=== PATIENT | male | born 1955 | race Caucasian/White ===

== ENCOUNTER → 2016-12-18 | Outpatient (CLI) | payer BC ==
[~2016-12-18] MED LIST: AMLO-110 PO; ASPI81TA28 PO; ATOR-24 PO; COEN150C PO; COLE625T PO; FENT75DI2 TD; GABA600T PO; MULT-506 PO; OMEG120013 PO; OMEP40CA PO; SYN100 PO; TEMA15CA4 PO; TRAZ100T29 PO; VITBC PO
--- NOTE | 2016-12-18 12:13 | DIAGNOSTIC IMAGING REPORT ---
CERVICAL SPINE MRI HISTORY: CERVICAL PAIN TECHNIQUE: Multiplanar multisequence MRI of the cervical spine was performed without the use of contrast. COMPARISON STUDY: None. FINDINGS: There is straightening of the cervical spine. Alignment is intact. Mild disc space narrowing at C4-C5, C5-C6, and C6-C7. There are small endplate osteophytes seen at C5-C7. No fractures within the cervical spine. Prevertebral soft tissues and the C1-C2 interval are intact. The visualized posterior fossa is unremarkable. The cervical spinal cord demonstrates a normal signal intensity. Mild bilateral facet arthrosis. This is most pronounced at the right C3-C4 facet. C2-C3: No significant central canal or neural foraminal narrowing. Mild left uncovertebral hypertrophy. C3-C4: There is an 8 x 6 mm right paracentral disc extrusion which abuts and slightly deforms the right anterior cord. Bilateral uncovertebral and facet hypertrophy results in severe right and mild to moderate left neural foraminal narrowing. C4-C5: Small broad-based posterior disc osteophyte complex resulting in partial effacement of the anterior thecal sac without cord deformity. There is moderate right and mild left neural foraminal narrowing. C5-C6: Small broad-based posterior disc osteophyte complex resulting in partial effacement of the anterior thecal sac without cord deformity. There is severe right and mild left neural foraminal narrowing. C6-C7: Small broad-based posterior disc osteophyte complex without significant central canal narrowing. There is moderate right and mild left neural foraminal narrowing. C7-T1: No significant central canal or neural foraminal narrowing. IMPRESSION: 1. An 8 x 6 mm right paracentral disc extrusion at C3-C4 which abuts and slightly deforms the right anterior cord. 2. Multilevel bilateral neural foraminal narrowing as described above. 3. Small broad-based posterior disc osteophyte complexes at C4-C5 and C5-C6 which result in partial effacement of the anterior thecal sac without cord deformity Electronically signed by: Dixon Dangelo M.D. 12/18/2016 12:11 PM Dictated Date/Time: 12/18/2016 11:46 AM
== END | disposition home or self-care (01) ==
LOC: C.OPENMRI 10:28
PROVIDERS: ATTEND Orthopaedic Surgery Orthopaedic Surgery of the Spine
DX: M50.21 Other cervical disc displacement, high cervical region (principal)

== ENCOUNTER → 2017-06-18 | Outpatient (CLI) | payer BC ==
--- NOTE | 2017-06-19 07:46 | PAP/PSG TECHNICIAN REPORT ---
[facility] Mechanical Maintenance Polysomnogram Report Study name: None Report date: 06/19/2017 Study date: 06/18/2017 Referring Physician: Dave Martino M.D. Name: JAMEY BERMUDEZ Interpreting Physician: Meenakshi Martino M.D. Date of : 1955 Mechanical Maintenance: Trish Kraus, PSGT. Sex: Male Age: 61 StudyType: PSG Weight: 192 lbs Height: 61 years, Height 6' 2.5" Neck Circum:15 inches BMI: 24.32 Medications: LEVOXYL 112 MCG, PROTONIX 40 MG, ZANTAC 150 MG, NORVASAC 2.5 MG, DESYREL 100 MG, FENTANYL 75 MG, PRILESEC 40 MG, LIPITOR 80 MG, RESTERIL 15 MG, ANDRODERM 4 MG, ATIVAN 0.5 MG, NEURONTIN 600 MG, ASPIRIN 81 MG. Patient History 61 YR. OLD MALE IN ROOM 5, PRESENTS TO THE SLEEP LAB FOR A ROUTINE SLEEP STUDY. PT. STATES THAT HE WASNT ABLE TO BE COMPLIANT WITH C-PAP IN THE PAST AND REFUSES TO TRY AGAIN. HE DOES STATE THAT HE HAS INSOMNIA AND WAKES OFTEN WHEN HE CAN SLEEP. HE STATES THAT HE SNORES AND NEEDS HELP WITH THAT ALSO. HE USES A FENTANYL PATCH, RESTORIL, ATIVANALONG WITH TRAZADONE TO HELP WITH PAIN AND SLEEP WELL ANIEXTY.ESSS=6, NECK =15 INCHES. Parameters Monitored NPSG: E1-M2, E2-M1, Fp1-M2, Fp2-M1, F3-M2, F4-M2, F4-M1, C3-M2, C4-M2, C4-M1, O1-M2, O2-M2, O2-M1, T3-M2, T4-M1, P3-M2, P4-M1, CHIN1, CHIN2, HR, EKG, Legs, PFLOW, SNOR, FLOW, CFLOW, Tidal Volume, THOR, ABDO, SpO2, PLTH, CPRESS, ETCO2 Wave, ETCO2, pH Sleep Architecture Sleep Stages Time at Lights Off 10:58:11 PM STAGES Time (min.) TST (%) Time at Lights On 5:15:41 AM Wake 28.5 -- Total Recording Time (TRT) 378.00 min. N1 16.0 5 Total Sleep Period (TSP) 367.5 min. N2 274.0 79 Total Sleep Time (TST) 349.0min. N3 0.0 0 Awake Time 28.5 min. REM 59.0 17 Wake after Sleep Onset 18.5 min. Sleep Efficiency (SE) 92 % Sleep Onset Latency (GERA) 10.0 min. Number of Stage 1 Shifts None Awakenings 9 Stage Changes 42 Number of REM periods 5 REM 59.0 17 REM Latency 57.0 min. NREM 290.0 83 Body Position Analysis Supine Right Left Side Prone Vertical Total Sleep Time (min.) 46.1 163.9 140.1 303.93 0.0 0.2 Total Sleep Time (%) 13% 47% 40% 87 0% N/A% Total Sleep Time REM (min.) 17.0 21.0 21.0 None 0.0 0.0 Total Sleep Time NREM (min.) 28.1 142.9 119.1 None 0.0 0.0 Intermittent Wake (min.) 1.0 14.8 12.5 None 0.0 0.2 Total Sleep Period (%) 13% None None None None None Arousals Myoclonus (PLM) * Events Count Index Events Count Index Spontaneous 34 6 Events Awake (PLMW) 2 4.2 Respiratory 2 0.3 Events Asleep w/ Arousal (PLMA) 0 0.0 PLM 0 0 Events Asleep w/o Arousal (PLMS) 55 9.5 Snoring 4 1 Total Asleep 55 9.5 Total 40 7 Total 57 9 Respiratory Analysis * CA OA MA CH H RERA Total Count 1 1 1 0 14 5 17 Index 0.2 0.2 0.2 0 2.4 1 3.8 Mean Duration 14.4 23.6 17.7 0.00 24.0 13.3 20.8 Longest Duration 14.4 23.6 17.7 0.00 17.7 22.5 52.9 Respiratory Event Summary Total Supine ~Supine Right Left Prone REM NREM Apneas Count 3 0 3 3 0 N/A 0 3 Index 0.5 0 1 1.1 0.0 N/A 0 1 Hypopneas (4% Desat) Count 14 2 12 5 7 N/A 0 14 Index 2.4 2.7 2 1.8 3.0 N/A 0.0 2.9 Apneas & All Hypopneas Count 17 2 15 8 7 N/A 0 17 Index 2.9 3 3 3 3 N/A 0.0 3.5 Respiratory Events ([place] Man+All Hyp+RERA) Count 17 3 19 10 9 N/A 0 17 Index 3.8 4 4 3.7 3.9 N/A 0.0 4.6 Respiratory Related Arousal Count 2 3 2 1 1 N/A 0 2 Index 0.3 0 0 0 0 N/A 0 0 Snoring Analysis Supine Right Left Prone REM NREM Total Snore duration 17.4 min Snores count 21 29 506 N/A 23 533 556 Snore mean duration 1.9 Sec Snores index 28 11 217 N/A 23.4 110.3 95.6 TST with snoring (%) 5.0% Desaturation Event Summary: Minimum %SpO2 Event Count Mean/Min/Max Duration(sec.) Desaturation Index % Time In Bed > 90 19 18.0 / 11.0 / 29.5 3.3 90.8 86 - 90 0 N/A 0.0 9.2 81 - 85 0 N/A 0.0 0.0 76 - 80 0 N/A 0.0 0.0 71 - 75 0 N/A 0.0 0.0 66 - 70 0 N/A 0.0 0.0 61 - 65 0 N/A 0.0 0.0 56 - 60 0 N/A 0.0 0.0 51 - 55 0 N/A 0.0 0.0 < 50 0 N/A 0.0 0.0 Total REM NREM Awake <50% 0.0 min. 0.0 min. 0.0 min. 0.0 min. 51 - 60% 0.0 min. 0.0 min. 0.0 min. 0.0 min. 61 - 70% 0.0 min. 0.0 min. 0.0 min. 0.0 min. 71 - 80% 0.0 min. 0.0 min. 0.0 min. 0.0 min. 81 - 90% 34.5 min. 0.7 min. 33.7 min. 0.0 min. 91 - 100% 341.9 min. 58.3 min. 256.1 min. 27.5 min. Average 92 93 92 94 Minimum SpO2 76 90 88 76 Desaturation Event Index 3.0 0.0 3.9 2.1 # Desat. Events below 89% 1 N/A 1 N/A Time(%) with Saturation below 89% 0.0 0.0 0.0 0.0 Time(min.) with Saturation below 89% 0.1 0.0 0.1 0.0 Time (mins) REM (mins) NREM (mins) % of TST SpO2 Below 90% 8 N/A N8 0.9 SpO2 Below 88% 0 0 0 0 Heart Rate Analysis Min (bpm) Max (bpm) Average (bpm) Awake 38 127 59 NREM 39 73 55 REM 41 71 53 Overall 39 73 54 Supplemental O2 Values Minimum O2 level: None Value Start Time End Time Mechanical Maintenance Comments PSG Study Mr. Bermudez slept in the right, left, and supine positions. Cardiac arrhythmia or PLM's noted. No bruxism noted. Snoring was noted and scored as a 4 on a scale of 1 through 5. (0=no snoring, 5=snoring loud enough to be heard through a closed door or down the herrera way) Mr. Bermudez awoke to use the restroom zero times during the night. Mr. Bermudez stated, I did not sleep as well as I do when I am in my own bed. The final report will be interpreted and signed by a sleep physician. The completed physician report will then be placed in the patient medical record. Therapy (cm H2O) 0 TIB (min.) 377.5 TST (min.) 349.0 Sleep Onset (min.) 10.0 REM Onset From Sleep (min.) 57.0 Sleep Efficiency % 92 Wakefulness (%) 8 Wakefulness (min.) 28.5 NREM 1 (%) 5 NREM 1 (min.) 16.0 NREM 2 (%) 79 NREM 2 (min.) 274.0 NREM 3 (%) 0 NREM 3 (min.) 0.0 REM (%) 17 REM (min.) 59.0 # Arousals 40 Arousal Index 7 # Snore 556 Snore Index 95.6 AHI 2.9 AHI Supine 3 AHI Non-Supine 3 NREM AHI 3.5 REM AHI 0.0 RDI 3.8 # Obstructive Apnea 1 # Central Apnea 1 # Mixed Apnea 1 # Hypopneas 14 RERAs 5 Total Respiratory Events 22 Time Below SpO2 89% (min.) 0.1 Mean NREM SpO2 (%) 92 Mean REM SpO2 (%) 93 Mean Sleep SpO2 (%) 92 Min NREM SpO2 (%) 88 Min REM SpO2 (%) 90 Position Supine (min.) 46.1 Position Non-supine (min.) 303.9 LM Index Sleep 9.5 LM Index NREM 9.1 LM Index REM 11.2 Mean Heart Rate (bpm) 54 Min Heart Rate (bpm) 39
--- NOTE | 2017-07-07 16:34 | POLYSOMNOGRAPH REPORT ---
REFERRING PERSON: Dr. Shabnam Martino. CORRECTIONAL SECURITY OFFICER: Rowan Kraus. Mr. Bermudez is a 61-year-old male who presents for a baseline sleep study. He has a history of obstructive sleep apnea but was unable to be compliant in the past. He has a history of insomnia and wakes often during sleep. He does snore. He uses fentanyl patch for chronic pain. He also uses restoril, Ativan and trazodone for pain and sleep. His [place] sleepiness scale score on the evening of this study is 6. BMI is 24.32. Following the technical and digital specifications of the [place] [employer] (AASM) a standard diagnostic polysomnogram was performed monitoring EEG, EOG, EMG (chin and leg deviations), oxygen saturation, body position, digital video, respiratory effort and airflow. The sleep Stage and event scoring was based on the AASM Manual for the Scoring of Sleep and Associated Events 2007 edition. Apneas are defined as a drop in the peak thermal sensor excursion by >90% of baseline for at least 10 seconds. Hypopneas were scored using the 4% oxygen desaturation rule (4A-[employer]) and a decrease in the nasal pressure excursions by >30% of baseline for at least 10 seconds. Respiratory effort-related arousal (RERA's) is defined as a sequence of breaths lasting at least 10 seconds characterized by increasing respiratory effort or flattening of the nasal pressure waveform leading to an arousal from sleep when the sequence of breaths does not meet criteria for an apnea or hypopnea. Apnea Hypopnea index (AHI) is defined as the number of apneas and hypopneas occurring in an hour of sleep. Respiratory disturbance index (RDI) is defined as the number of apneas, hypopneas, and RERA's occurring in an hour of sleep. Mr. Jackson total sleep period time was 367.5 minutes. Total sleep time was 349 minutes. Sleep efficiency was 92%. Latency to sleep onset was 10 minutes with wake after sleep onset of 18.5 minutes. Total non-REM sleep time was 290 minutes. He spent 5% of that time in N1 sleep, 79% in N2 sleep and no time in N3 sleep. REM latency was 57 minutes. Total REM sleep time was 59 minutes or 17% of total sleep time. There were 40 cortical arousals from sleep. Thirty-four of these arousals were spontaneous, 2 were due to respiratory events, and 4 were due to snoring. There were 55 periodic limb movements. Limb movement index was 9.5. Limb movement with arousal index was 0. On this baseline study, there was 1 central, 1 obstructive and 1 mixed apnea. There were 14 hypopneas. Apnea-hypopnea index was normal at 2.9. There were 556 snoring events recorded. Total sleep time with snoring was 5%. Mean saturation was 92% with desaturations to 76%. Saturations were less than 89% for 0.1 minutes of recorded time. There was no cardiac ectopy during sleep, this patient's heart rates ranged from a low of 39 beats per minute to a high of 73 beats per minute. Loud snoring was heard throughout the night. IMPRESSION AND PLAN: A 61-year-old male without evidence of sleep-disordered breathing, nocturnal hypoxemia, bruxism, parasomnia or clinically significant periodic limb movements of sleep on this test.
== END | disposition home or self-care (01) ==
LOC: C.NEUR 20:00
PROVIDERS: ATTEND Family Medicine
DX: Z86.69 Personal history of other diseases of the nervous system and sense organs (principal); F51.04 Psychophysiologic insomnia; F40.240 Claustrophobia; R06.83 Snoring; R06.81 Apnea, not elsewhere classified; D58.2 Other hemoglobinopathies; F41.9 Anxiety disorder, unspecified

== ENCOUNTER 2022-02-06 06:31 | Inpatient (IN) ==
[2022-02-06] MEDS ORDERED: WATER, STERILE FOR INJ 10 ML VIAL ONE (06:56)
[2022-02-06] MEDS ORDERED: BUPIVACAINE 0.25% 30 ML VIAL ONE (06:56)
[2022-02-06] MEDS ORDERED: LIDOCAINE 1% LOCAL 20 ML VIAL ONE ×2 (06:56→16:06)
[2022-02-06] MEDS ORDERED: VANCOMYCIN HCL 1000MG/20ML VIAL ONE (06:56)
--- NOTE | 2022-02-06 07:49 | History & Physical Bridge Note ---
Date of Service February 06, 2022 History & Physical Bridge Note I have examined the patient, reviewed the History & Physical and in the interval since the performance of the History & Physical I have noted the following changes of clinical significance: no changes noted
--- NOTE | 2022-02-06 07:50 | Pre Anesthesia Assessment ---
Date of Service February 06, 2022 Pre Sedation Assessment Vital Signs Resp 02/06/22 07:04 18 Cardiovascular + bradycardic Respiratory normal respiratory effort, lungs clear to auscultation Pre-Sedation Airway Assessment Smoking Status: Never smoker Hx Sleep Apnea: Yes Short, Thick Neck: No Thyromental Distance: > or= 3.5 Finger Breadths Oral Cavity: + WNL Mallampati Class: II ASA: ASA2 NPO Status Date of Last Intake of Fluids: 02/05/22 Time of Last Intake of Fluids: 23:00 Last Oral Intake of Fluids Comment: sips this am with meds Date of Last Intake of Solid Food: 02/05/22 Time of Last Intake of Solid Foods: 21:00 Procedure Planning Contraindications for Sedation: none Current Medications Reviewed: Yes Notes The planned sedation has been discussed with the patient. Informed Consent was obtained. I have identified the patient, determined the appropriateness of sedation and have assessed the patient immediately prior to the procedure. All medicine(s) and interventions are by my order.
[2022-02-06] MEDS ORDERED: CLINDAMYCIN PHOS 300 MG/2 ML VIAL ONE (07:51)
[2022-02-06] MEDS ORDERED: fentaNYL citrate 100 MCG/2 ML VIAL ONE ×2 (08:03→08:36)
[2022-02-06] MEDS ORDERED: MIDAZOLAM HCL 5 MG/ML 1 ML VIAL ONE ×2 (08:03→08:42)
--- NOTE | 2022-02-06 09:43 | Post Anesthesia Assessment ---
Date of Service February 06, 2022 Post Sedation Assessment Vital Signs Resp 02/06/22 07:04 18 Recovery Score Activity: Moves 4 extremities Respiration: Deep Breath/Cough Circulation: +/-20% PreAnes Value Consciousness: Fully Awake Oxygen Saturation: > 92% On Room Air Discharge Sedation Level of Care: Fast Track Phase II Post Sedation Plan On clinical assessment, the patient appears to have tolerated the sedation witho ut complications. Patient is recovering as anticipated. Patient will continue to be monitored by nursing and may be discharged when sedation discharge criteria are met per below protocol. Upon Completions of procedure up to 15 minutes continue every 5 minute vital signs and the P.A.R. score; then discharge to a Phase I or Fast Track to Phase II per the following guidelines: * Discharge Patient to appropriate Phase II area if PAR is 8 or greater or return to pre- procedure baseline. The post - procedure orders will be as directed. * If PAR score is less than 8 or not return to pre-procedure baseline then patient will follow Phase I monitoring till PAR is reached for Phase II. The Phase I may be done in procedure room or may call to secure a Phase I area. * If naloxone or flumazenil are used for reversal, hold in Phase I for continued monitoring from when last reversal dose was given for a minimum of 60 minutes or longer pending the nurse and/or physician discretion of patient condition before discharge to Phase II. Please call the Sedation Physician to re-evaluate and complete post-note for discharge to Phase II area. Do NOT discharge from procedure sedation or Phase 1 until post- sedation evaluation note is complete by procedure /sedation MD Sedation Discharge Instructions to be given to the patient at discharge to home.
--- NOTE | 2022-02-06 09:44 | Operative Report ---
Post Operative Report Pre & Post Diagnosis tbs Operation Date: 02/06/22 08:00 <No data on this case meets the specified criteria> I identified the patient and participated in the time-out.: Yes Procedure Operation Date: 02/06/22 08:00 Actual Procedures p Cineradiography w/Routine Exam - Mayte De La Rosa DO p Pacer with A/V Leads (Dual) - Mayte De La Rosa, s Bundle of his Recording - Mayte De La Rosa DO s Venogram, Unilateral - Mayte De La Rosa, Surgeon Mayte De La Rosa, DO Product Architect none Estimated Blood Loss 40 Findings Consistent with Post-Op Diagnosis t Specimens none Description of Procedure see official report I attest to the content of the Intraoperative Record and any orders documented therein. Any exceptions are noted below.
--- NOTE | 2022-02-06 11:33 | XRay Report ---
XR chest 1V portable CLINICAL HISTORY: s/p ppm TECHNIQUE: Single frontal radiograph of the chest was obtained. Comparison: None available at the time of this dictation. FINDINGS: Dual lead pacemaker is seen. The cardiac mediastinal silhouette is mildly prominent. The lungs are cl ear. There is a moderate thorax. IMPRESSION: Moderate left pneumothorax status post pacemaker placement. ACT 112: Negative or not required by law. Electronically signed by: Victor M Duarte M.D. 02/06/2022 11:30 AM
[2022-02-06] MEDS ORDERED: MELATONIN 3 MG TAB PO PRN (13:26)
[2022-02-06] MEDS ORDERED: oxyCODONE HCL IR 5 MG TAB (IMMEDIATE RELEASE) PO PRN (13:29)
--- NOTE | 2022-02-06 15:19 | XRay Report ---
XR chest 1V portable CLINICAL HISTORY: Left PNX TECHNIQUE: Single frontal radiograph of the chest was obtained. Comparison: Comparison is made to chest one view 02/06/2022 FINDINGS: Dual lead pacemaker is again seen. The cardiomediastinal silhouette is stable. The lungs are clear. I nterval enlargement of left pneumothorax, now measures approximately 6 cm in thickness. IMPRESSION: Interval enlargement of left pneumothorax which is now large in size. ACT 112: Negative or not required by law. Electronically signed by: Victor M Duarte M.D. 02/06/2022 3:17 PM
[2022-02-06 15:49] LABS: INR 1.9 (0.9-1.1); Prothrombin Time 19.7 Seconds (9.0-12.0)
[2022-02-06 16:05] LABS: Basophils # (auto) 0.03 K/uL (0-0.2); Basophils % (auto) 0.3 %; Eosinophils # (auto) 0.19 K/uL (0-0.5); Eosinophils % (auto) 1.9 %; Hematocrit (blood only) 41.2 % (42-52); Immature Granulocytes # (auto) 0.01 K/uL (0.00-0.02); Immature Granulocytes % (auto) 0.1 %; Lymphocytes # (auto) 2.71 K/uL (1.2-3.4); Lymphocytes % (auto) 27.7 %; Mean Corpuscular Hemoglobin 30.1 pg (25-34); Mean Corpuscular Volume 88.6 fL (80-100); Mean Platelet Volume 10.5 fL (7.4-10.4); Monocytes # (auto) 0.69 K/uL (0.11-0.59); Monocytes % (auto) 7.1 %; Neutrophils # (auto) 6.14 K/uL (1.4-6.5); Neutrophils % (auto) 62.9 %; Platelet Count 171 K/uL (130-400); RDW Coefficient of Variation 13.5 % (11.5-14.5); RDW Standard Deviation 43.9 fL (36.4-46.3); Red Blood Count 4.65 M/uL (4.7-6.1); White Blood Count 9.77 K/uL (4.8-10.8)
[2022-02-06 16:14] LABS: INR 1.9 (0.9-1.1); Prothrombin Time 19.4 Seconds (9.0-12.0)
--- NOTE | 2022-02-06 16:41 | XRay Report ---
XR chest 1V portable CLINICAL HISTORY: pneumothorax s/p chest tube placement TECHNIQUE: Single frontal radiograph of the chest was obtained. Comparison: Comparison is made to chest one view 02/06/2022 at 1428 hours FINDINGS: Interval placement of a left chest tube. The cardiomediastinal silhouette is stable. Atelectasis is s een in the bilateral dependent lungs. The left pneumothorax is decreased in size, there is a 13 mm le ft apical pneumothorax remaining. IMPRESSION: Interval placement of a left chest tube with reduction in size of the left pneumothorax which is smal l. ACT 112: Negative or not required by law. Electronically signed by: Victor M Duarte M.D. 02/06/2022 4:39 PM
--- NOTE | 2022-02-06 16:52 | Procedure Note ---
Procedure Note Date of Service February 06, 2022 Note Left-sided 8 Afghan chest tube in the mid axillary line Procedure: Pneumothorax catheter placement Indication: Evacuate pneumothorax Anesthesia: 8 ml Lidocaine 1% Written consent was obtained and placed on the chart. Timeout was done prior to the procedure. Prior to procedure, chest x-ray films were reviewed by myself and demonstrated a large left-sided pneumothorax. A time-out was completed verifying correct patient, procedure, site, positioning, and implant(s) or special equipment if applicable. Utilizing bedside ultrasound, chest wall was evaluated for location for optimal chest tube placement. Location between the fifth and sixth ribs were marked on the skin using gentle pressure. The left sided chest wall was prepped with chlorhexidine and draped in the typical sterile fashion. 8 mL of 1% Lidocaine without epinephrine was used to anesthetize the skin down to the dorsal surface of the 6 rib. Air return confirmed entry into the pleural space. Lidocaine was injected into the pleural space for increased anesthetization. Introducer needle on syringe was inserted in perpendicular fashion taking care to ride just above the dorsal surface of the sixth rib. Entry into the pleural space was heralded by air return into the syringe while under gentle aspiration. A small incision was made using an 11 scalpel blade. Pneumothorax catheter was placed using the over the needle technique. This was attached to the [place] drainage kit. Air leak was seen. Pneumothorax catheter was secured using a 2-0 silk suture. Blood Loss: Minimal Complications: None Post procedure Chest X-ray was ordered and reviewed by myself which demonstrated adequate placement. Coding CPT Codes Pulmonary/Thoracic - Pulmonary and Thoracic: 81756 Tube thoracostomy ([id number]) [facility] [place] Codes (Charges) Pulmonary/Thoracic Procedure 1: Pulmonary and Thoracic: 83492 Tube thoracostomy
--- NOTE | 2022-02-06 16:59 | Pulmonary Consultation ---
Date of Consultation February 06, 2022 Assessment & Plan (1) Iatrogenic pneumothorax: 8 Dutch chest tube placed in the mid axillary line with improvement of the pneumothorax. We will leave the chest tube to -20 cm suction overnight and obtain a chest x-ray tomorrow morning. We will continue to follow with you. History of Present Illness Reason for Consultation: Iatrogenic pneumothorax Attending Physician: Mayte De La Rosa DO History of Present Illness 14-year-old male with a past medical history of tachybradycardia syndrome who presented as an outpatient for pacemaker placement. He underwent pacemaker via left subclavian vein approach. He was doing well and was incidentally discovered to have a moderate size left pneumothorax. He was placed on a nonrebreather. Unfortunately, the pneumothorax increased in size and the patient began having some mild chest pressure. Consent was obtained fro m the patient to place a small bore chest tube which was successfully placed and the pneumothorax was decompressed. Patient denies any history of lung disease, tobacco abuse. He notes that his chest pressure is now relieved. He has a small grade 1 leak in the [place] drainage system. Allergies Allergy/AdvReac Type Severity Reaction Status Date / Time Penicillins Allergy Mild Unknown Verified 03/02/21 08:10 Home Medications Medication Instructions Recorded Confirmed Type aspirin 81 mg tablet,delayed 81 mg PO QAM 09/29/18 02/06/22 History release (Adult Aspirin Regimen) multivitamin 1 tab PO QAM 09/29/18 02/06/22 History omega-3 fatty acids 1,000 mg 1,000 mg PO HS 09/29/18 02/06/22 History capsule (Fish Oil Concentrate) oxycodone 5 mg capsule 5 mg PO BID PRN cap 09/29/18 02/06/22 History temazepam 15 mg capsule (Restoril) 15 mg PO HS cap 09/29/18 02/06/22 History trazodone 100 mg tablet 200 mg PO HS tab 09/29/18 02/06/22 History levothyroxine 112 mcg tablet 112 mcg PO QAM 11/15/19 02/06/22 History (Synthroid) sertraline 100 mg tablet (Zoloft) 100 mg PO QAM 11/15/19 02/06/22 History amlodipine 10 mg tablet 10 mg PO DAILY 05/16/20 02/06/22 History coenzyme Q10 400 mg capsule 400 mg PO DAILY 05/16/20 02/06/22 History morphine 30 mg tablet,extended 30 mg PO Q12H 05/16/20 02/06/22 History release atorvastatin 80 mg tablet (Lipitor) 80 mg PO DAILY 03/02/21 02/06/22 History docusate sodium 100 mg capsule 300 mg PO DAILY cap 03/02/21 02/06/22 History (Colace) ezetimibe 10 mg tablet (Zetia) 10 mg PO DAILY 03/02/21 02/06/22 History fluticasone propionate 50 1 spray INTRANASAL DAILY 03/02/21 02/06/22 History mcg/actuation nasal spray,suspension (Flonase Allergy Relief) lactobacillus combination no.9 4 4,000 mmu cells PO DAILY 03/02/21 02/06/22 History billion cell capsule (Adult 50 Plus Probiotic) melatonin 10 mg capsule 10 mg PO HS PRN 03/02/21 02/06/22 History methylcellulose (with sugar) oral 1 tbsp PO DAILY 03/02/21 02/06/22 History powder (Citrucel (sucrose)) potassium chloride 10 mEq 10 meq PO DAILY 03/02/21 02/06/22 History tablet,extended release (Klor-Con) torsemide 20 mg tablet 20 mg PO DAILY 03/02/21 02/06/22 History vitamin B complex (B 1 tab PO DAILY 03/02/21 02/06/22 History Complex-Vitamin B12) famotidine 20 mg tablet 40 mg PO DAILY 02/06/22 02/06/22 History pantoprazole 40 mg tablet,delayed 40 mg PO DAILY 02/06/22 02/06/22 History release warfarin 5 mg tablet 5 mg PO DAILY 02/06/22 02/06/22 History Patient History Medical History (Updated 02/06/22 @ 16:57 by Pritesh Galloway MD) Anxiety Back pain Cancer SCC Cardiac murmur Chronic back pain Chronic narcotic use Degenerative disc disease Depression Family history of colon cancer Hyperlipidemia Hypertension H/O. NO MEDICATIONS NEEDED CURRENTLY Hypogonadism in male Hypothyroidism Iatrogenic pneumothorax Valvular heart disease Aortic Valve Replacement 11/05/21 Surgical History (Updated 12/19/21 @ 08:29 by Ivonne Weems RN) Fusion of spine L3-L4 History of cardiac cath History of colonoscopy History of coronary artery bypass graft CABG x 3 SINGH to LAD SVG to OM PDA 11/05/2021 History of endoscopic sinus surgery History of heart artery stent 1 OR 2 STENTS. 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 Patient is in no apparent distress. Patient is well-developed. Eyes: Pupils are equal round and reactive to light. Conjunctivae are normal. Anicteric sclera. Ears nose, mouth and throat: Nasal cannula in place. Neck: Trachea is midline. Visual inspection is normal. Respiratory: Decreased lung sounds in the left. No tracheal deviation. Cardiovascular: Regular rate and rhythm. No murmurs. No edema. Gastrointestinal: Normal bowel sounds, soft, nontender and nondistended. No hepatosplenomegaly noted. Musculoskeletal: No cyanosis. Patient is able to move all extremities. Skin: No rashes, warm dry and intact. Neurologic: No obvious focal neurological deficits seen. Psychiatric: Alert and oriented x3 with a euthymic affect. Results & Data Results & Data ([facility]) Vital Signs (Past 12 Hours) Vital Signs Temp Pulse Pulse Resp BP Pulse Ox 02/06/22 15:23 71 20 178/103 H 98 02/06/22 14:44 36.4 C L 72 20 154/100 H 98 02/06/22 14:28 36.5 C 71 20 164/103 H 97 02/06/22 14:15 36.4 C L 71 20 158/101 H 97 02/06/22 13:30 66 162/104 H 100 02/06/22 13:15 65 153/100 H 100 02/06/22 12:55 70 141/107 H 100 02/06/22 12:40 70 141/107 H 100 02/06/22 12:25 72 157/101 H 100 02/06/22 12:10 72 158/97 H 100 02/06/22 11:55 74 20 149/85 H 98 02/06/22 11:40 77 20 144/89 H 99 02/06/22 11:27 76 17 153/89 H 92 02/06/22 10:59 65 17 148/100 H 92 02/06/22 10:30 65 17 172/111 H 92 02/06/22 10:15 65 17 160/100 H 92 02/06/22 10:00 66 17 146/96 H 92 02/06/22 09:45 68 17 163/105 H 92 02/06/22 07:04 18 PG Care Time/CCT Total # of Minutes Spent Total Time Spent with Patient: Total time spent is greater than 50% in coordination of care (as documented) at patient's floor/unit and/or counseling patient: Coding Level of Care Code 37805 Initial Inpt Care Lvl 2 Diagnoses Iatrogenic pneumothorax J95.811
[2022-02-06] MEDS ORDERED: OMEGA-3 (PURIFIED FISH OIL) 1 GM CAP PO SCH (21:00)
[2022-02-06] MEDS ORDERED: traZODone HCL 100 MG TAB PO SCH (21:00)
[2022-02-06] MEDS ORDERED: TEMAZEPAM 15 MG CAPSULE PO SCH (21:00)
[2022-02-06] MEDS: OMEGA-3 (PURIFIED FISH OIL) 1 GM CAP PO SCH (23:57)
[2022-02-06] MEDS: traZODone HCL 100 MG TAB PO SCH (23:57)
[2022-02-07] MEDS: LEVOTHYROXINE SODIUM 112 MCG TABLET PO SCH (06:02)
[2022-02-07] MEDS: ACETAMINOPHEN 325 MG TAB PO PRN ×2 (06:04→10:09)
[2022-02-07 06:34] LABS: INR 1.8 (0.9-1.1); Prothrombin Time 18.4 Seconds (9.0-12.0)
--- NOTE | 2022-02-07 08:35 | Pulmonology Progress Note ---
Date of Service February 07, 2022 Assessment & Plan (1) Iatrogenic pneumothorax: Plan: Attending: Dr. Galloway Impression: 66-year-old male with iatrogenic pneumothorax status post pacemaker placement. Repeat chest x-ray performed several hours after procedure showed persistent pneumothorax. An 8 [place] pneumothorax catheter was placed in the midaxillary line without difficulty or bleeding. Patient was placed to suction overnight. Chest x-ray this morning shows resolution of the pneumothorax. Patient was placed to waterseal at 0800 this morning. Patient has no fever, chills, sweats, rigors. No hypoxia. No respiratory distress. No other acute complaints. Recommendations: 1. Iatrogenic pneumothorax * Patient with reexpansion of lung status post placement of 8 [place] pneumothorax catheter in the left midaxillary line * Oxygenating well on room air * Will place patient to waterseal this morning and get repeat chest x-ray at 11 AM * Based on review of chest x-ray, possible removal of catheter. Possible discharge home later today Thank you for including us in the care of this patient. We will continue to follow the patient. Admission and Anticipated Discharge Date Admission Date: February 06, 2022 Supervising Physician Co-Signing Physician Notes Patient seen and examined. Patient evaluated this afternoon post chest x-ray. Chest x-ray reviewed with increasing apical pneumothorax. Patient placed back on suction with a low-grade airleak noted. We will continue with suction at thi s time and reevaluate chest x-ray tomorrow. Patient denies any significant chest pain. No shortness of breath. Subjective Attending: Dr. Galloway Patient seen and examined in room 230 bed 2. Chest tube continues to remain secured. Chest x-ray reviewed and there appears to be reexpansion of the left lung. Patient placed to waterseal at 0800 this morning. Repeat two-view chest x-ray ordered for 11 AM this morning. Patient has no significant discomfort at the chest tube insertion site. He has no shortness of breath. He is oxygenating well on room air. He has no chest pain or tightness. No specific pain at the cardiac pacer placement site. He denies fever, chills, sweats, rigors. No other acute complaints today. Review of Systems Review of Systems: All systems reviewed & are unremarkable except as noted in Subjective Physical Exam Physical Exam: GENERAL : No acute distress EYES: No icterus, gaze conjugate NOSE: No evidence of epistaxis MOUTH: No lesions or candidiasis NECK: Supple LUNGS: CTA B/L, no wheezes, rales or rhonchi. Lung sounds in all posterior lung hennessy. HEART: Regular, rate controlled ABDOMEN: Soft, NT, ND, BS Present EXTREMITIES: No LE edema, pedal pulses intact NEURO: A&OX3 Results & Data [facility] Vital Signs (Past 12 Hours) Vital Signs Temp Pulse Pulse Pulse Resp BP Pulse Ox 02/07/22 07:49 37.0 C 74 19 139/91 97 02/07/22 03:49 36.9 C 74 20 169/82 H 93 02/06/22 23:03 36.8 C 72 20 180/98 H 97 02/06/22 22:20 75 Diagnostic Findings Chest x-ray completed this morning. There appears to be no pneumothorax. Chest tube is in good position. Official report from radiology is pending. Critical Care Results & Data Vital Signs (Past 12 Hours) Vital Signs Temp Pulse Pulse Pulse Resp BP Pulse Ox 02/07/22 07:49 37.0 C 74 19 139/91 97 02/07/22 03:49 36.9 C 74 20 169/82 H 93 02/06/22 23:03 36.8 C 72 20 180/98 H 97 02/06/22 22:20 75 Lab & Micro Results (Past 24 Hours) RBC 4.65 M/uL (4.7-6.1) L 02/06/22 WBC 9.77 K/uL (4.8-10.8) 02/06/22 Hgb 14.0 g/dL (14.0-18.0) 02/06/22 Hct 41.2 % (42-52) L 02/06/22 MCV 88.6 fL (80-100) 02/06/22 MCH 30.1 pg (25-34) 02/06/22 MCHC 34.0 g/dL (32-36) 02/06/22 RDW Standard Deviation 43.9 fL (36.4-46.3) 02/06/22 RDW Coefficient of Variation 13.5 % (11.5-14.5) 02/06/22 Plt Count 171 K/uL (130-400) 02/06/22 MPV 10.5 fL (7.4-10.4) H 02/06/22 Neutrophils (%) (Auto) 62.9 % 02/06/22 Lymphocytes (%) (Auto) 27.7 % 02/06/22 Monocytes # (Auto) 0.69 K/uL (0.11-0.59) H 02/06/22 Eosinophils # (Auto) 0.19 K/uL (0-0.5) 02/06/22 Immature Granulocyte % (Auto) 0.1 % 02/06/22 Neutrophils # (Auto) 6.14 K/uL (1.4-6.5) 02/06/22 Lymphocytes # (Auto) 2.71 K/uL (1.2-3.4) 02/06/22 Monocytes # (Auto) 0.69 K/uL (0.11-0.59) H 02/06/22 Eosinophils # (Auto) 0.19 K/uL (0-0.5) 02/06/22 Basophils # (Auto) 0.03 K/uL (0-0.2) 02/06/22 Immature Granulocyte # (Auto) 0.01 K/uL (0.00-0.02) 02/06/22 No Data to Display Prothromb Time International Ratio 1.8 (0.9-1.1) H 02/07/22 05:43 02/07/22 Diagnostic Findings (Past 24 Hours) Chest X-Ray 02/06/22 11:30 XR chest 1V portable CLINICAL HISTORY: s/p ppm TECHNIQUE: Single frontal radiograph of the chest was obtained. Comparison: None available at the time of this dictation. FINDINGS: Dual lead pacemaker is seen. The cardiac mediastinal silhouette is mildly prominent. The lungs are clear. There is a moderate thorax. IMPRESSION: Moderate left pneumothorax status post pacemaker placement. ACT 112: Negative or not required by law. Electronically signed by: Victor M Duarte M.D. 02/06/2022 11:30 AM Chest X-Ray 02/06/22 15:05 XR chest 1V portable CLINICAL HISTORY: Left PNX TECHNIQUE: Single frontal radiograph of the chest was obtained. Comparison: Comparison is made to chest one view 02/06/2022 FINDINGS: Dual lead pacemaker is again seen. The cardiomediastinal silhouette is stable. The lungs are clear. Interval enlargement of left pneumothorax, now measures approximately 6 cm in thickness. IMPRESSION: Interval enlargement of left pneumothorax which is now large in size. ACT 112: Negative or not required by law. Electronically signed by: Victor M Duarte M.D. 02/06/2022 3:17 PM Chest X-Ray 02/06/22 16:24 XR chest 1V portable CLINICAL HISTORY: pneumothorax s/p chest tube placement TECHNIQUE: Single frontal radiograph of the chest was obtained. Comparison: Comparison is made to chest one view 02/06/2022 at 1428 hours FINDINGS: Interval placement of a left chest tube. The cardiomediastinal silhouette is stable. Atelectasis is seen in the bilateral dependent lungs. The left pneumothorax is decreased in size, there is a 13 mm left apical pneumothorax remaining. IMPRESSION: Interval placement of a left chest tube with reduction in size of the left pneu mothorax which is small. ACT 112: Negative or not required by law. Electronically signed by: Victor M Duarte M.D. 02/06/2022 4:39 PM I & O Totals 24 Hours 02/06/22 02/07/22 02/08/22 06:59 06:59 06:59 Output Total 800 / 800 Balance -800 / -800 Cumulative 01/28/22 10:39 thru 02/07/22 04:20 Output Total 800 Balance -800 RT Ventilator Mngmt (Last Documented) Ventilator Ordered Settings Respiratory Rate 19 02/07/22 07:49 Ventilator - PT Measurements Respiratory Rate 19 PG Care Time/CCT Total # of Minutes Spent Total Time Spent with Patient: Total time spent is greater than 50% in coordination of care (as documented) at patient's floor/unit and/or counseling patient:20 minutes Coding Level of Care Code 70243 Subseq Hosp Care Lvl 2 Diagnoses Iatrogenic pneumothorax J95.811 Time Spent (min) 20
[2022-02-07] MEDS ORDERED: WARFARIN SOD 5 MG TAB PO SCH (09:00)
[2022-02-07] MEDS: VITAMIN B COMPLEX TAB PO SCH (09:56)
[2022-02-07] MEDS: dilTIAZem ER 120 MG CAPCR PO SCH (09:56)
[2022-02-07] MEDS: TORSEMIDE 20 MG TAB PO SCH (09:56)
[2022-02-07] MEDS: ATORVASTATIN 40 MG TAB PO SCH (09:57)
[2022-02-07] MEDS: amLODIPine BESYLATE 5 MG TAB PO SCH (09:57)
[2022-02-07] MEDS: MULTIVITAMIN TAB PO SCH (09:57)
[2022-02-07] MEDS: ASPIRIN 81 MG ECTAB PO SCH (09:57)
[2022-02-07] MEDS: SERTRALINE HCL 100 MG TABLET PO SCH (09:58)
[2022-02-07] MEDS: EZETIMIBE 10 MG TABLET PO SCH (09:58)
[2022-02-07] MEDS: ADVANCED PROBIOTIC 1250 MG CAPSULE PO SCH (09:58)
[2022-02-07] MEDS: FAMOTIDINE 40 MG TABLET PO SCH (09:58)
[2022-02-07] MEDS: PANTOprazole 40 MG TAB PO SCH (09:58)
[2022-02-07] MEDS: POTASSIUM CHLORIDE 10 MEQ TABCR PO SCH (09:58)
[2022-02-07] MEDS: DOCUSATE SODIUM 100 MG CAP PO SCH (09:58)
[2022-02-07] MEDS: FLUTICASONE PROPIONATE NA SPR 16 GM BTL SCH (09:59)
[2022-02-07] MEDS: METHYLCELLULOSE POWDER 454 GM JAR PO SCH (10:00)
--- NOTE | 2022-02-07 10:01 | XRay Report ---
XR chest 1V portable HISTORY: 66 years-old Male follow up ptx follow-up study in a patient with left-sided pneumothorax COMPARISON: Chest radiograph 02/06/2022 TECHNIQUE: Portable AP view of the chest FINDINGS: Cardiomediastinal and hilar silhouettes are within normal limits. Prior median sternotomy with left a trial exclusion device. Left subclavian pacer. Mild linear scarring/atelectasis of the left lung base redemonstrated. Left apical pneumothorax redemonstrated with pleural separation of 1.9 cm, previousl y 1.3 cm. Pleural separation laterally measures 1.6 cm. Chest tube projects over the lateral left tera g base. Degenerative changes of the shoulders and spine. IMPRESSION: Left-sided chest tube in place. Mildly increased size of the left-sided pneumothorax. ACT 112: Negative or not required by law. The above report was generated using voice recognition software. It may contain grammatical, syntax o r spelling errors. Electronically signed by: Julian Page M.D. 02/07/2022 9:59 AM
--- NOTE | 2022-02-07 11:26 | XRay Report ---
XR chest 2V PA/lateral HISTORY: 66 years-old Male Left-sided pneumothorax follow study in a patient with left-sided pneumot horax COMPARISON: Chest radiograph of same day at 6:43 AM TECHNIQUE: PA and lateral views of the chest FINDINGS: Cardiomediastinal and hilar silhouettes are within normal limits. Prior median sternotomy with left a trial exclusion device and cardiac valvular prosthesis. Left subclavian pacer. Mild linear scarring/a telectasis of the left lung base redemonstrated. Left apical pneumothorax redemonstrated with pleural separation of 2.9 cm, previously 1.9 cm. The chest projects over the lateral left lung base. Trace s ubcutaneous emphysema of the lateral left chest wall. Degenerative changes of the shoulders and spine . Limited lateral view secondary to upper extremity positioning. IMPRESSION: Left-sided chest tube in place with persistent left-sided pneumothorax which appears stab le to slightly increased in size. ACT 112: Negative or not required by law. The above report was generated using voice recognition software. It may contain grammatical, syntax o r spelling errors. Electronically signed by: Julian Page M.D. 02/07/2022 11:24 AM
--- NOTE | 2022-02-07 12:05 | Cardiology Progress Note ---
Date of Service February 07, 2022 Assessment & Plan (1) Iatrogenic pneumothorax: (2) Pacemaker: Plan: The patient is in good spirits. Pulmonary note appreciated and he is currently to [facility] so hopefully the chest tube can come out later today. Otherwise the patient is stable. Admission and Anticipated Discharge Date Admission Date: February 06, 2022 Subjective The patient has no ongoing complaints. Review of Systems Review of Systems: Review of Systems: See HPI for pertinent positives. All other 10 point review of systems are negative. Physical Exam Physical Exam: General: no acute distress and stated age Head: normocephalic, no masses, lesions, tenderness or abnormalities Eyes: conjunctiva are pink and non-injected, sclera clear Neck: supple, no adenopathy, no bruits, normal jugular venous pulse, no hepatojugular reflux Chest: normal shape and normal respiratory effort Lungs: Chest tube on the left. Breath sounds sound equal Cardiac Exam: - regular rate & rhythm, no murmurs gallops or rubs - normal S1, normal S2 Pulses: 2(+) throughout Abdomen: abdomen soft, non-tender, no abnormal masses and no hepatosplenomegaly Musculoskeletal: no gait disturbance, no joint inflammation, no deforming arthritis Extremities: Left arm in a sling. Pacemaker site clean and dry Neuro: grossly normal exam Results & Data ([facility]) Vital Signs (Past 12 Hours) Vital Signs Temp Pulse Pulse Resp BP Pulse Ox 02/07/22 11:28 36.8 C 79 18 163/96 H 92 02/07/22 07:49 37.0 C 74 19 139/91 97 02/07/22 03:49 36.9 C 74 20 169/82 H 93 Laboratory Results Laboratory Results - last 24 hr 02/06/22 02/06/22 02/06/22 14:51 15:53 15:53 WBC 9.77 RBC 4.65 L Hgb 14.0 Hct 41.2 L MCV 88.6 MCH 30.1 MCHC 34.0 RDW Std Deviation 43.9 RDW Coeff of Jasmina 13.5 Plt Count 171 MPV 10.5 H Immature Gran % (Auto) 0.1 Neut % (Auto) 62.9 Lymph % (Auto) 27.7 [place] % (Auto) 7.1 Eos % (Auto) 1.9 Baso % (Auto) 0.3 Neut # (Auto) 6.14 Lymph # (Auto) 2.71 [place] # (Auto) 0.69 H Eos # (Auto) 0.19 Baso # (Auto) 0.03 Immature Gran # (Auto) 0.01 PT 19.7 H 19.4 H INR 1.9 H 1.9 H 02/07/22 05:43 WBC RBC Hgb Hct MCV MCH MCHC RDW Std Deviation RDW Coeff of Jasmina Plt Count MPV Immature Gran % (Auto) Neut % (Auto) Lymph % (Auto) [place] % (Auto) Eos % (Auto) Baso % (Auto) Neut # (Auto) Lymph # (Auto) [place] # (Auto) Eos # (Auto) Baso # (Auto) Immature Gran # (Auto) PT 18.4 H INR 1.8 H Medications Administered Current Inpatient Medications Acetaminophen (Acetaminophen 325 Mg Tab) 650 mg PO Q4H PRN PRN Reason: Pain or Fever Stop: 03/08/22 12:43 Last Admin: 02/07/22 10:09 Dose: 650 mg Documented by: Amlodipine Besylate (Amlodipine Besylate 5 Mg Tab) 10 mg PO DAILY [facility] Stop: 03/09/22 08:59 Last Admin: 02/07/22 09:57 Dose: 10 mg Documented by: Aspirin (Aspirin 81 Mg Ectab) [facility] [place]: 03/09/22 08:59 Last Admin: 02/07/22 09:57 Dose: 81 mg Documented by: Atorvastatin Calcium (Atorvastatin 40 Mg Tab) 80 mg PO DAILY [facility] Stop: 03/09/22 08:59 Last Admin: 02/07/22 09:57 Dose: 80 mg Documented by: Diltiazem HCl (Diltiazem Er 120 Mg Capcr) 120 mg PO QAM [facility] Stop: 03/09/22 08:59 Last Admin: 02/07/22 09:56 Dose: 120 mg Documented by: Docusate Sodium (Docusate Sodium 100 Mg Cap) 300 mg PO DAILY [facility] Stop: 03/09/22 08:59 Last Admin: 02/07/22 09:58 Dose: Not Given Documented by: Ezetimibe (Ezetimibe 10 Mg Tablet) 10 mg PO DAILY [facility] Stop: 03/09/22 08:59 Last Admin: 02/07/22 09:58 Dose: 10 mg Documented by: Famotidine (Famotidine 40 Mg Tablet) 40 mg PO DAILY [facility] Stop: 03/09/22 08:59 Last Admin: 02/07/22 09:58 Dose: 40 mg Documented by: Fish Oil (Cantil-3 (Purified Fish Oil) 1 Gm Cap) 1 gm PO 0000 [facility] Stop: 03/08/22 20:59 Last Admin: 02/06/22 23:57 Dose: 1 gm Documented by: Fluticasone Propionate (Fluticasone Propionate Na Spr 16 Gm Btl) 1 sprays NA DAILY [facility] Stop: 03/09/22 08:59 Last Admin: 02/07/22 09:59 Dose: 1 sprays Documented by: Lactobacillus Acidophilus (Advanced Probiotic 1250 Mg Capsule) 2 cap PO DAILY [facility] Stop: 03/09/22 08:59 Last Admin: 02/07/22 09:58 Dose: 2 cap Documented by: Levothyroxine Sodium (Levothyroxine Sodium 112 Mcg Tablet) 112 mcg PO DAILYBB [facility] Stop: 03/09/22 06:29 Last Admin: 02/07/22 06:02 Dose: 112 mcg Documented by: Melatonin (Melatonin 3 Mg Tab) 9 mg PO HS PRN PRN Reason: Sleep Stop: 03/08/22 13:25 Methylcellulose (Methylcellulose Powder 454 Gm Jar) 1 gm PO DAILY [facility] Stop: 03/09/22 08:59 Last Admin: 02/07/22 10:00 Dose: 1 gm Documented by: Morphine Sulfate (Morphine Sulfate Cr 15 Mg Tabcr) 30 mg PO Q12H [facility] Stop: 02/20/22 20:59 Last Admin: 02/07/22 00:00 Dose: 30 mg Documented by: Multivitamins (Multivitamin Tab) 1 tab PO QAM [facility] Stop: 03/09/22 08:59 Last Admin: 02/07/22 09:57 Dose: 1 tab Documented by: Oxycodone HCl (Oxycodone Hcl Ir 5 Mg Tab (Immediate Release)) 5 mg PO BID PRN PRN Reason: Pain Stop: 02/20/22 13:28 Pantoprazole Sodium (Pantoprazole 40 Mg Tab) 40 mg PO DAILY [facility] Stop: 03/09/22 08:59 Last Admin: 02/07/22 09:58 Dose: 40 mg Documented by: Potassium Chloride (Potassium Chloride 10 Meq Tabcr) 10 meq PO DAILY [facility] Stop: 03/09/22 08:59 Last Admin: 02/07/22 09:58 Dose: 10 meq Documented by: Sertraline HCl (Sertraline Hcl 100 Mg Tablet) 100 mg PO QAM [facility] Stop: 03/09/22 08:59 Last Admin: 02/07/22 09:58 Dose: 100 mg Documented by: Temazepam (Temazepam 15 Mg Capsule) 15 mg PO 0000 [facility] Stop: 03/08/22 20:59 Last Admin: 02/07/22 00:00 Dose: 15 mg Documented by: Torsemide (Torsemide 20 Mg Tab) 20 mg PO [id number]@0900 [facility] Stop: 03/09/22 08:59 Last Admin: 02/07/22 09:56 Dose: 20 mg Documented by: Torsemide (Torsemide 20 Mg Tab) 40 mg PO MoWeFr@0900 [facility] Stop: 03/10/22 08:59 Trazodone HCl (Trazodone Hcl 100 Mg Tab) 200 mg PO 0000 [facility] Stop: 03/08/22 20:59 Last Admin: 02/06/22 23:57 Dose: 200 mg Documented by: Vitamin B Complex (Vitamin B Complex Tab) 1 tab PO DAILY [facility] Stop: 03/09/22 08:59 Last Admin: 02/07/22 09:56 Dose: 1 tab Documented by:
[2022-02-07] MEDS: MoRPHine SULFATE CR 15 MG TABCR PO SCH ×3 (12:10→23:58)
[2022-02-07] MEDS: TEMAZEPAM 15 MG CAPSULE PO SCH ×2 (23:58)
[2022-02-07] MEDS: traZODone HCL 100 MG TAB PO SCH (23:58)
[2022-02-07] MEDS: OMEGA-3 (PURIFIED FISH OIL) 1 GM CAP PO SCH (23:59)
[2022-02-08] MEDS: LEVOTHYROXINE SODIUM 112 MCG TABLET PO SCH (05:46)
--- NOTE | 2022-02-08 07:25 | XRay Report ---
XR chest 1V portable HISTORY: 66 years-old Male follow up ptx follow-up study in a patient with left-sided pneumothorax COMPARISON: Chest radiograph 02/07/2022 TECHNIQUE: Portable AP view of the chest FINDINGS: Cardiac mediastinal and hilar silhouettes are within normal limits. Prior median sternotomy with left atrial exclusion device and cardiac valvular prosthesis. Left subclavian pacer. Mild linear subsegme ntal bibasilar atelectasis/scarring. Left-sided chest tube appears unchanged. Left-sided pneumothorax is unchanged with pleural separation at the apex measuring 2.8 cm and 1.6 cm laterally. Bones appear grossly intact. Decreased subcutaneous emphysema of the chest wall. IMPRESSION: Stable positioning of the left-sided chest tube with unchanged left-sided pneumothorax. ACT 112: Negative or not required by law. The above report was generated using voice recognition software. It may contain grammatical, syntax o r spelling errors. Electronically signed by: Julian Page M.D. 02/08/2022 7:23 AM
[2022-02-08 07:30] LABS: INR 1.4 (0.9-1.1); Prothrombin Time 14.7 Seconds (9.0-12.0)
[2022-02-08] MEDS: amLODIPine BESYLATE 5 MG TAB PO SCH (08:11)
[2022-02-08] MEDS: ASPIRIN 81 MG ECTAB PO SCH (08:12)
[2022-02-08] MEDS: ATORVASTATIN 40 MG TAB PO SCH (08:12)
[2022-02-08] MEDS: dilTIAZem ER 120 MG CAPCR PO SCH (08:13)
[2022-02-08] MEDS: DOCUSATE SODIUM 100 MG CAP PO SCH (08:14)
[2022-02-08] MEDS: EZETIMIBE 10 MG TABLET PO SCH (08:15)
[2022-02-08] MEDS: FAMOTIDINE 40 MG TABLET PO SCH (08:15)
[2022-02-08] MEDS: FLUTICASONE PROPIONATE NA SPR 16 GM BTL SCH (08:16)
[2022-02-08] MEDS: ADVANCED PROBIOTIC 1250 MG CAPSULE PO SCH (08:16)
[2022-02-08] MEDS: METHYLCELLULOSE POWDER 454 GM JAR PO SCH (08:17)
[2022-02-08] MEDS: MULTIVITAMIN TAB PO SCH (08:17)
[2022-02-08] MEDS: POTASSIUM CHLORIDE 10 MEQ TABCR PO SCH (08:19)
[2022-02-08] MEDS: SERTRALINE HCL 100 MG TABLET PO SCH (08:20)
[2022-02-08] MEDS: VITAMIN B COMPLEX TAB PO SCH (08:20)
[2022-02-08] MEDS: TORSEMIDE 20 MG TAB PO SCH (08:21)
--- NOTE | 2022-02-08 08:24 | Pulmonology Progress Note ---
Date of Service February 08, 2022 Assessment & Plan (1) Iatrogenic pneumothorax: Plan: Attending: Dr. Galloway Impression: 66-year-old male with iatrogenic pneumothorax status post pacemaker placement. Repeat chest x-ray performed several hours after procedure showed persistent pneumothorax. An 8 Albanian pneumothorax catheter was placed in the midaxillary line without difficulty or bleeding. Recommendations: 1. Iatrogenic pneumothorax - Residual ptx seen on cxr this AM. No air leak seen, but after I flushed the tube with 20 ml of saline, brief air leak seen. After about 5 min the air leak went away. Will ask the nurse to place the tube to waterseal in 30 min or so if no air leak is seen. Likely repeat cxr around 11 am and if stable, will clamp tube and consider removal. Thank you for including us in the care of this patient. We will continue to follow the patient. Admission and Anticipated Discharge Date Admission Date: February 06, 2022 Subjective Patient seen and examined. Tolerating diet. No chest pain. Chest tube to suction overnight. Using non-rebreather, but off to eat breakfast. Review of Systems Review of Systems: All systems reviewed & are unremarkable except as noted in HPI & below Physical Exam Physical Exam: GENERAL : No acute distress EYES: No icterus, gaze conjugate NOSE: No evidence of epistaxis MOUTH: No lesions or candidiasis NECK: Supple LUNGS: CTA B/L, no wheezes, rales or rhonchi. Lung sounds in all posterior lung hennessy. HEART: Regular, rate controlled ABDOMEN: Soft, NT, ND, BS Present EXTREMITIES: No LE edema, pedal pulses intact NEURO: A&OX3 Results & Data Results & Data ([facility]) Vital Signs (Past 12 Hours) Vital Signs Temp Pulse Pulse Resp BP Pulse Ox 02/08/22 07:43 36.4 C L 61 15 117/82 96 02/08/22 07:31 72 02/08/22 04:21 36.9 C 70 16 142/85 H 99 02/08/22 01:03 67 02/07/22 23:14 36.8 C 64 18 145/86 H 96 PG Care Time/CCT Total # of Minutes Spent Total Time Spent with Patient: Total time spent is greater than 50% in coordination of care (as documented) at patient's floor/unit and/or counseling patient: Coding Level of Care Code 97879 Subseq Hosp Care Lvl 3 Diagnoses Iatrogenic pneumothorax J95.819
[2022-02-08] MEDS: ACETAMINOPHEN 325 MG TAB PO PRN (08:34)
[2022-02-08] MEDS ORDERED: TORSEMIDE 20 MG TAB PO SCH (09:00)
[2022-02-08] MEDS: PANTOprazole 40 MG TAB PO SCH (09:45)
[2022-02-08] MEDS: MoRPHine SULFATE CR 15 MG TABCR PO SCH ×2 (11:44→23:33)
--- NOTE | 2022-02-08 11:53 | XRay Report ---
XR chest 1V portable HISTORY: 66 years-old Male chest tube to waterseal status post placement of a left-sided chest tube. COMPARISON: Chest radiograph of same day at 6:42 AM TECHNIQUE: AP view of the chest FINDINGS: Cardiac mediastinal and hilar silhouettes are within normal limits. Prior median sternotomy with left atrial exclusion device and cardiac valvular prosthesis. Left subclavian pacer. Mild linear subsegme ntal bibasilar atelectasis/scarring. Left-sided chest tube appears unchanged. Left-sided pneumothorax is unchanged with pleural separation at the apex measuring 3.2 cm, previously 2.8 cm and measures 1. 8 cm at the lateral left lung base, previously 1.6 cm. Bones appear grossly intact. Decreased subcuta neous emphysema of the chest wall. IMPRESSION: Stable positioning of the left-sided chest tube with stable to slightly increased size of the left pneumothorax. ACT 112: Negative or not required by law. The above report was generated using voice recognition software. It may contain grammatical, syntax o r spelling errors. Electronically signed by: Julian Page M.D. 02/08/2022 11:51 AM
--- NOTE | 2022-02-08 12:57 | Cardiology Progress Note ---
Date of Service February 08, 2022 Assessment & Plan (1) Iatrogenic pneumothorax: (2) Pacemaker: Plan: Pulmonary's help appreciated. Patient is stable from a cardiac standpoint. Admission and Anticipated Discharge Date Admission Date: February 06, 2022 Subjective The patient appears to be comfortable. Review of Systems Review of Systems: Review of Systems: See HPI for pertinent positives. All other 10 point review of systems are negative. Physical Exam Physical Exam: General: no acute distress and stated age Head: normocephalic, no masses, lesions, tenderness or abnormalities Eyes: conjunctiva are pink and non-injected, sclera clear Neck: supple, no adenopathy, no bruits, normal jugular venous pulse, no hepatojugular reflux Chest: normal shape and normal respiratory effort Lungs: Chest tube on the left. Breath sounds sound equal Cardiac Exam: - regular rate & rhythm, no murmurs gallops or rubs - normal S1, normal S2 Pulses: 2(+) throughout Abdomen: abdomen soft, non-tender, no abnormal masses and no hepatosplenomegaly Musculoskeletal: no gait disturbance, no joint inflammation, no deforming arthritis Extremities: Left arm in a sling. Pacemaker site clean and dry Neuro: grossly normal exam Results & Data ([facility]) Vital Signs (Past 12 Hours) Vital Signs Temp Pulse Pulse Resp BP Pulse Ox 02/08/22 11:01 36.6 C 68 17 101/68 98 02/08/22 07:43 36.4 C L 61 15 117/82 96 02/08/22 07:31 72 02/08/22 04:21 36.9 C 70 16 142/85 H 99 02/08/22 01:03 67 Laboratory Results Laboratory Results - last 24 hr 02/08/22 06:51 PT 14.7 H INR 1.4 H Medications Administered Current Inpatient Medications Acetaminophen (Acetaminophen 325 Mg Tab) 650 mg PO Q4H PRN PRN Reason: Pain or Fever Stop: 03/08/22 12:43 Last Admin: 02/08/22 08:34 Dose: 650 mg Documented by: Amlodipine Besylate (Amlodipine Besylate 5 Mg Tab) 10 mg PO DAILY [facility] Stop: 03/09/22 08:59 Last Admin: 02/08/22 08:11 Dose: 10 mg Documented by: Aspirin (Aspirin 81 Mg Ectab) 81 mg PO QAM [facility] Stop: 03/09/22 08:59 Last Admin: 02/08/22 08:12 Dose: 81 mg Documented by: Atorvastatin Calcium (Atorvastatin 40 Mg Tab) 80 mg PO DAILY [facility] Stop: 03/09/22 08:59 Last Admin: 02/08/22 08:12 Dose: 80 mg Documented by: Diltiazem HCl (Diltiazem Er 120 Mg Capcr) 120 mg PO QAM [facility] Stop: 03/09/22 08:59 Last Admin: 02/08/22 08:13 Dose: 120 mg Documented by: Docusate Sodium (Docusate Sodium 100 Mg Cap) 300 mg PO DAILY [facility] Stop: 03/09/22 08:59 Last Admin: 02/08/22 08:14 Dose: 300 mg Documented by: Ezetimibe (Ezetimibe 10 Mg Tablet) 10 mg PO DAILY [facility] Stop: 03/09/22 08:59 Last Admin: 02/08/22 08:15 Dose: 10 mg Documented by: Famotidine (Famotidine 40 Mg Tablet) 40 mg PO DAILY [facility] Stop: 03/09/22 08:59 Last Admin: 02/08/22 08:15 Dose: 40 mg Documented by: Fish Oil ([place]-3 (Purified Fish Oil) 1 Gm Cap) 1 gm PO 0000 [facility] Stop: 03/08/22 20:59 Last Admin: 02/07/22 23:59 Dose: 1 gm Documented by: Fluticasone Propionate (Fluticasone Propionate Na Spr 16 Gm Btl) 1 sprays NA DAILY [facility] Stop: 03/09/22 08:59 Last Admin: 02/08/22 08:16 Dose: Not Given Documented by: Lactobacillus Acidophilus (Advanced Probiotic 1250 Mg Capsule) 2 cap PO DAILY [facility] Stop: 03/09/22 08:59 Last Admin: 02/08/22 08:16 Dose: 2 cap Documented by: Levothyroxine Sodium (Levothyroxine Sodium 112 Mcg Tablet) 112 mcg PO DAILYBB [facility] Stop: 03/09/22 06:29 Last Admin: 02/08/22 05:46 Dose: 112 mcg Documented by: Melatonin (Melatonin 3 Mg Tab) 9 mg PO HS PRN PRN Reason: Sleep Stop: 03/08/22 13:25 Methylcellulose (Methylcellulose Powder 454 Gm Jar) 1 gm PO DAILY [facility] Stop: 03/09/22 08:59 Last Admin: 02/08/22 08:17 Dose: Not Given Documented by: Morphine Sulfate (Morphine Sulfate Cr 15 Mg Tabcr) 30 mg PO Q12H [facility] Stop: 02/20/22 20:59 Last Admin: 02/08/22 11:44 Dose: 30 mg Documented by: Multivitamins (Multivitamin Tab) 1 tab PO QAM [facility] Stop: 03/09/22 08:59 Last Admin: 02/08/22 08:17 Dose: 1 tab Documented by: Oxycodone HCl (Oxycodone Hcl Ir 5 Mg Tab (Immediate Release)) 5 mg PO BID PRN PRN Reason: Pain Stop: 02/20/22 13:28 Last Admin: 02/07/22 20:10 Dose: 5 mg Documented by: Pantoprazole Sodium (Pantoprazole 40 Mg Tab) 40 mg PO DAILY [facility] Stop: 03/09/22 08:59 Last Admin: 02/08/22 09:45 Dose: 40 mg Documented by: Potassium Chloride (Potassium Chloride 10 Meq Tabcr) 10 meq PO DAILY [facility] Stop: 03/09/22 08:59 Last Admin: 02/08/22 08:19 Dose: Not Given Documented by: Sertraline HCl (Sertraline Hcl 100 Mg Tablet) 100 mg PO QAM [facility] Stop: 03/09/22 08:59 Last Admin: 02/08/22 08:20 Dose: 100 mg Documented by: Temazepam (Temazepam 15 Mg Capsule) 15 mg PO 0000 [facility] Stop: 03/08/22 20:59 Last Admin: 02/07/22 23:58 Dose: 15 mg Documented by: Torsemide (Torsemide 20 Mg Tab) 20 mg PO SuTuThSa@0900 [facility] Stop: 03/09/22 08:59 Last Admin: 02/08/22 08:21 Dose: 20 mg Documented by: Torsemide (Torsemide 20 Mg Tab) 40 mg PO MoWeFr@0900 [facility] Stop: 03/10/22 08:59 Last Admin: 02/08/22 08:22 Dose: 40 mg Documented by: Trazodone HCl (Trazodone Hcl 100 Mg Tab) 200 mg PO 0000 [facility] Stop: 03/08/22 20:59 Last Admin: 02/07/22 23:58 Dose: 200 mg Documented by: Vitamin B Complex (Vitamin B Complex Tab) 1 tab PO DAILY [facility] Stop: 03/09/22 08:59 Last Admin: 02/08/22 08:20 Dose: 1 tab Documented by:
[2022-02-08] MEDS: OMEGA-3 (PURIFIED FISH OIL) 1 GM CAP PO SCH (23:33)
[2022-02-08] MEDS: TEMAZEPAM 15 MG CAPSULE PO SCH (23:33)
[2022-02-08] MEDS: traZODone HCL 100 MG TAB PO SCH (23:33)
[2022-02-09] MEDS: LEVOTHYROXINE SODIUM 112 MCG TABLET PO SCH (06:18)
[2022-02-09 07:34] LABS: INR 1.3 (0.9-1.1); Prothrombin Time 13.3 Seconds (9.0-12.0)
--- NOTE | 2022-02-09 08:17 | XRay Report ---
XR chest 1V portable CLINICAL HISTORY: follow up ptx COMPARISON STUDY: Chest radiograph February 08, 2022 at 10:33 AM. FINDINGS: Left pleural catheter remains in place. The left pneumothorax is difficult to visualize on this exam due to motion artifact. However, the moderate pneumothorax is either unchanged or slightly decreased in size since prior exam. Left subclavian pacer is in place. There are median sternotomy wi res. Cardiomediastinal silhouette is stable. There is no evidence for pulmonary edema. Left basilar o pacity persists. IMPRESSION: Left pleural catheter in place. Left pneumothorax difficult to visualize on this exam but likely either unchanged or slightly decreased in size since prior exam. ACT 112: Negative or not required by law. Electronically signed by: Brennan Wills M.D. 02/09/2022 8:15 AM
[2022-02-09] MEDS: FLUTICASONE PROPIONATE NA SPR 16 GM BTL SCH (08:57)
[2022-02-09] MEDS: dilTIAZem ER 120 MG CAPCR PO SCH (09:01)
[2022-02-09] MEDS: EZETIMIBE 10 MG TABLET PO SCH (09:01)
[2022-02-09] MEDS: ATORVASTATIN 40 MG TAB PO SCH (09:01)
[2022-02-09] MEDS: DOCUSATE SODIUM 100 MG CAP PO SCH (09:02)
[2022-02-09] MEDS: amLODIPine BESYLATE 5 MG TAB PO SCH (09:02)
[2022-02-09] MEDS: ASPIRIN 81 MG ECTAB PO SCH (09:02)
[2022-02-09] MEDS: FAMOTIDINE 40 MG TABLET PO SCH (09:03)
[2022-02-09] MEDS: VITAMIN B COMPLEX TAB PO SCH (09:03)
[2022-02-09] MEDS: SERTRALINE HCL 100 MG TABLET PO SCH (09:03)
[2022-02-09] MEDS: PANTOprazole 40 MG TAB PO SCH (09:03)
[2022-02-09] MEDS: ADVANCED PROBIOTIC 1250 MG CAPSULE PO SCH (09:03)
[2022-02-09] MEDS: POTASSIUM CHLORIDE 10 MEQ TABCR PO SCH (09:03)
[2022-02-09] MEDS: METHYLCELLULOSE POWDER 454 GM JAR PO SCH (09:05)
--- NOTE | 2022-02-09 11:44 | XRay Report ---
XR chest 1V portable CLINICAL HISTORY: chest tube clamped COMPARISON STUDY: Chest radiograph performed earlier today. FINDINGS: Left pleural catheter remains in place. A small to moderate left pneumothorax is similar to prior exam with superior pleural separation of approximately 2.6 cm. The pneumothorax is difficult t o visualize on this exam. Left subclavian pacer is in place. Left basilar opacity is unchanged. No ri ght pneumothorax. IMPRESSION: No significant change in a small to moderate left pneumothorax with left pleural cathete r in place. ACT 112: Negative or not required by law. Electronically signed by: Brennan Wills M.D. 02/09/2022 11:43 AM
--- NOTE | 2022-02-09 12:04 | Pulmonology Progress Note ---
Date of Service February 09, 2022 Assessment & Plan (1) Iatrogenic pneumothorax: Plan: Attending: Dr. Galloway Impression: 66-year-old male with iatrogenic pneumothorax status post pacemaker placement. Repeat chest x-ray performed several hours after procedure showed persistent pneumothorax. An 8 Omani pneumothorax catheter was placed in the midaxillary line without difficulty or bleeding. Recommendations: 1. Iatrogenic pneumothorax -given the residual pneumothorax seen on imaging, will place the patient on a Heimlich valve as noted per HPI and discharge from home. He is instructed to avoid any significant strenuous activity or lifting anything over 5 pounds. We will repeat a chest x-ray tomorrow and potentially remove the pneumothorax catheter tomorrow in the office or soon after. Thank you for including us in the care of this patient. Admission and Anticipated Discharge Date Admission Date: February 08, 2022 Subjective Patient did very well with chest tube on waterseal overnight. I did clamp the chest tube for approximately 2 hours to repeat a chest x-ray. The pneumothorax appears stable. He did not have any worsening symptoms. He is saturating well on room air. I had numerous discussions with the patient several times during the day and with the nurse. We ultimately placed the patient on a Heimlich valve via the pneumothorax catheter. He ambulated around the hallways on several occasions and had lunch. He did very well. He is agreeable to discharge home with a Heimlich valve and repeating a chest x-ray on Friday. Review of Systems Review of Systems: All systems reviewed & are unremarkable except as noted in HPI & below Physical Exam Physical Exam: GENERAL : No acute distress EYES: No icterus, gaze conjugate NOSE: No evidence of epistaxis MOUTH: No lesions or candidiasis NECK: Supple LUNGS: CTA B/L, no wheezes, rales or rhonchi. Lung sounds in all posterior lung hennessy. HEART: Regular, rate controlled ABDOMEN: Soft, NT, ND, BS Present EXTREMITIES: No LE edema, pedal pulses intact NEURO: A&OX3 Results & Data Results & Data ([facility]) Vital Signs (Past 12 Hours) Vital Signs Temp Pulse Pulse Resp BP Pulse Ox 02/09/22 11:11 36.6 C 64 18 137/84 94 02/09/22 09:00 79 124/74 02/09/22 07:35 36.8 C 65 18 103/69 91 03/19/22 07:30 73 02/09/22 03:11 37 C 60 18 124/78 93 PG Care Time/CCT Total # of Minutes Spent Total Time Spent with Patient: Total time spent is greater than 50% in coordination of care (as documented) at patient's floor/unit and/or counseling patient: Coding Level of Care Code 28667 Subseq Hosp Care Lvl 3 Diagnoses Iatrogenic pneumothorax J95.811
[2022-02-09] MEDS: MULTIVITAMIN TAB PO SCH (12:15)
[2022-02-09] MEDS: MoRPHine SULFATE CR 15 MG TABCR PO SCH (12:38)
--- NOTE | 2022-02-09 12:38 | Cardiology Progress Note ---
Date of Service February 09, 2022 Assessment & Plan (1) Iatrogenic pneumothorax: (2) Pacemaker: Plan: 66-year-old male, primary allopathic doctor Dr. Abbasi of our practice. He has a longstanding history of coronary heart disease with remote PCI to the RCA in 2002. In the fall 2019 he was found to have increased dyspnea on exertion with multivessel stenting at that time, ultimately culminating in need for CABG x3 and surgical bioprosthetic aortic valve replacement, surgical left atrial appendage clip, [facility], 11/05/2021. He has a history of paroxysmal atrial fibrillation and developed tachycardia- bradycardia syndrome, prompting placement of dual-chamber permanent pacemaker 02/06/2022. Postprocedure chest x-ray notable for left-sided pneumothorax, appropriately treated with chest tube. Case reviewed with Dr Galloway of pulmonary medicine. Chest tube in place with a Hemleich valve. Repeat CXR at 11 am , reveals unchanged small to moderate left pneumothorax, presence of pleural catheter noted on radiology report. Given patient's clinical stability (stable pulse oximetry, lack of chest pain, shortness of breath), Plan for discharge with pleural catheter in place, with plans for chest x-ray, pulmonary follow-up in 2 days on 02/11/2022, with plans to likely remove pleural catheter in the office at that time. Pacemaker/wound check already tentatively scheduled at [facility] for 02/14/22. 8:30 am. Admission and Anticipated Discharge Date Admission Date: February 08, 2022 Subjective Patient seen in cardiology follow-up of recent pneumothorax, dual-chamber permanent pacemaker placement. Chest tube clamped at the time of my assessment for seen this morning. Ongoing small to moderate pneumothorax seen on chest x- rays this morning. Patient asymptomatic, with no chest discomfort or subjective shortness of breath. Pulse oximetry stable. Physical Exam Constitutional: WD/WN, vitals as above Respiratory: normal respiratory effort, lungs clear to auscultation Cardiovascular: RRR, no murmur, no edema Chest (Breasts): Additional Comments: Left infraclavicular pacemaker pocket clean dry and intact, incision healing appropriately, mild erythema, usual healing. Neurologic: PERRL, EOMI, accommodation nl, no face palsy, no dysarthria Results & Data ([facility]) Vital Signs (Past 12 Hours) Vital Signs Temp Pulse Pulse Resp BP Pulse Ox 03/19/22 11:11 36.6 C 64 18 137/84 94 02/09/22 09:00 79 124/74 02/09/22 07:35 36.8 C 65 18 103/69 91 02/09/22 07:30 73 02/09/22 03:11 37 C 60 18 124/78 93
--- NOTE | 2022-02-09 12:59 | Discharge Summary ---
Date of Service February 09, 2022 Principal Diagnosis Tachycardia-bradycardia syndrome Permanent pacemaker Postprocedural pneumothorax. Discharge Exam Constitutional WD/WN, vitals as above Respiratory normal respiratory effort, lungs clear to auscultation Cardiovascular RRR, no murmur, no edema Neurologic PERRL, EOMI, accommodation nl, no face palsy, no dysarthria Discharge Data Allergies Allergy/AdvReac Type Severity Reaction Status Date / Time Penicillins Allergy Mild Unknown Verified 03/02/21 08:10 Consultations 02/06/22 12:53 Consult Pulmonology Routine Procedures Performed Operation Date: 02/06/22 08:00 Actual Procedures p Pacer with A/V Leads (Dual) - Mayte De La Rosa DO s Bundle of his Recording - Mayte De La Rosa DO s Venogram, Unilateral - Mayte De La Rosa DO Ordered Studies 01/30/22 07:00 EP Lab Images for PACS ONCE 02/06/22 15:28 US point of care ultrasound Stat Hospital Course (1) Iatrogenic pneumothorax: (2) Pacemaker: 66-year-old male, 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 Abbasi of our practice. He has a longstanding history of coronary heart disease with remote PCI to the RCA in 2002. In the fall 2019 he was found to have increased dyspnea on exertion with multivessel stenting at that time, ultimately culminating in need for CABG x3 and surgical bioprosthetic aortic valve replacement, surgical left atrial appendage clip, [facility], 11/05/2021. He has a history of paroxysmal atrial fibrillation and developed tachycardia- bradycardia syndrome, prompting placement of dual-chamber permanent pacemaker 02/06/2022. Postprocedure chest x-ray notable for left-sided pneumothorax, appropriately treated with chest tube. Case reviewed with Dr Galloway of pulmonary medicine. Chest tube in place with a Hemleich valve. Repeat CXR at 11 am , reveals unchanged small to moderate left pneumothorax, presence of pleural catheter noted on radiology report. Given patient's clinical stability (stable pulse oximetry, lack of chest pain, shortness of breath), Plan for discharge with pleural catheter in place, with plans for chest x-ray, pulmonary follow-up in 2 days on 02/11/2022, with plans to likely remove pleural catheter in the office at that time. Pacemaker/wound check already tentatively scheduled at [facility] for 02/14/22. 8:30 am. Patient is on Coumadin as an outpatient for his history of paroxysmal atrial fibrillation. He remains in sinus rhythm at present, and does have a history of surgical left atrial appendage clip. I believe in the short-term his risk of cardioembolic stroke is low. Given ongoing treatment for pneumothorax with chest tube, he is to be discharged without Coumadin, with plans for reassessment as outpatient next week with regards to the timing of reinitiating Coumadin. Also, electrophysiology plan had been to discontinue patient's metoprolol, in favor of diltiazem CD 120 mg daily. Of note patient also had been on amlodipine 10 mg daily. At this time we will discontinue amlodipine and metoprolol in favor of the previously prescribed diltiazem CD 120 mg daily. Patient already received an outpatient prescription for diltiazem on 01/22/2022 that was routed to the [facility] pharmacy. Total Time Total Time Spent Total Time Spent (In Minutes): 45 Discharge Plan Discharge Items Patient Disposition: Home - Self-Care Reason For Visit: Tachybrady Syndrome Discharge Diagnosis: Tachycardia-bradycardia syndrome, dual-chamber permanent pacemaker, postp rocedural pneumothorax Condition on Discharge: Good Activity: As commented below Activity Comment: do not raise the left elbow over the left shoulder for 1 month Lifting: No more than 10 pounds Lifting Comment: do not lift mroe than 10 pounds with the left arm for 2 weeks Bathing: Keep incision dry Bathing Comment: keep dressing on & dry until wound check; no shower sponge bath only Sexual Activity: After two weeks Non-emergency contact: Equipment Service Technician Call non-emergency contact if: you have any medication questions and your symptoms worsen Follow-up/Referrals: Pritesh Galloway MD [Physician] - 02/11/22 Rolando Valdez MD [Primary Care Provider] - Diet: Heart Healthy Addtl Attending Provider Instructions: Pulmonary follow up with Dr Galloway, 02/11/22, time to be determined. Device and wound check as scheduled next week at [facility], , 8:30 am, 8:15 am arrival. If you have not started the diltiazem 120mg daily start it now. A prescription was sent to the [facility] pharmacy on 01/22/22. Diltiazem replaces amlodipine and metoprolol. Pending Studies at Discharge: No Stand-Alone Forms: Anesthesia/Sedation, Adult, [facility] Medications and DC Order Prescriptions: New diltiazem HCl 120 mg capsule,extended release 24hr 120 mg PO DAILY Qty: 30 RF: 11 Continued atorvastatin [Lipitor] 80 mg tablet 80 mg PO DAILY RF: 0 torsemide 20 mg tablet 20 mg PO DAILY RF: 0 potassium chloride [Klor-Con 10] 10 mEq tablet extended release 10 meq PO DAILY RF: 0 ezetimibe [Zetia] 10 mg tablet 10 mg PO DAILY RF: 0 Citrucel (sucrose) Powder 1 tbsp PO DAILY RF: 0 melatonin 10 mg capsule 10 mg PO HS PRN (Reason: Sleep) RF: 0 vitamin B complex [B Complex-Vitamin B12] Tablet 1 tab PO DAILY RF: 0 Adult 50 Plus Probiotic 4 billion cell capsule 4,000 mmu cells PO DAILY RF: 0 docusate sodium [Colace] 100 mg capsule 300 mg PO DAILY RF: 0 fluticasone propionate [Flonase Allergy Relief] 50 mcg/actuation spray,suspension 1 spray intranasal DAILY RF: 0 aspirin [Adult Aspirin Regimen] 81 mg tablet,delayed release (DR/EC) 81 mg PO QAM RF: 0 oxycodone 5 mg capsule 5 mg PO BID PRN (Reason: Pain) RF: 0 multivitamin tablet 1 tab PO QAM RF: 0 omega-3 fatty acids [Fish Oil Concentrate] 1,000 mg capsule 1,000 mg PO HS RF: 0 temazepam [Restoril] 15 mg capsule 15 mg PO HS RF: 0 trazodone 100 mg tablet 200 mg PO HS RF: 0 morphine 30 mg tablet extended release 30 mg PO Q12H RF: 0 coenzyme Q10 400 mg capsule 400 mg PO DAILY RF: 0 levothyroxine [Synthroid] 112 mcg tablet 112 mcg PO QAM RF: 0 sertraline [Zoloft] 100 mg Tablet 100 mg PO QAM RF: 0 famotidine 20 mg Tablet 40 mg PO DAILY RF: 0 pantoprazole 40 mg Tablet,Delayed Release (Dr/Ec) 40 mg PO DAILY RF: 0 Discontinued amlodipine 10 mg tablet 10 mg PO DAILY RF: 0 warfarin 5 mg Tablet 5 mg PO DAILY RF: 0 metoprolol tartrate 25 mg Tablet 12.5 mg PO BID RF: 0 Discharge Orders: Discharge Order (Routine); Ordered 02/06/22 Ordered By: Mayte De La Rosa Admission Data Admit Date/Time: 02/08/22 13:26 Attending Provider: Mayte De La Rosa Admit Provider: Mayte De La Rosa Primary Care Provider: Rolando Valdez Other Providers: Pritesh Galloway
--- NOTE | 2022-02-18 08:14 | Operative Report (OR) ---
DATE OF PROCEDURE: 02/06/22 PREOPERATIVE DIAGNOSIS: Tachybrady syndrome. POSTOPERATIVE DIAGNOSIS: Tachybrady syndrome. PROCEDURE: Dual-chamber rate responsive permanent pacemaker under fluoroscopic guidance along with peripheral venogram and intracardiac electrogram His bundle recording. SURGEON: Mayte De La Rosa DO. RAYON CONER: None. ANESTHESIA: Monitored conscious sedation administered under my supervision by Rowan Mancuso. Start time 8:17, end time 9:36. A total of 9 mg of Versed and 175 mcg of fentanyl. INTRAVENOUS FLUIDS: 280 mL. ANTIBIOTICS: 600 mg of clindamycin. CONTRAST: 15 mL. BLOOD LOSS: 40 mL. CONDITION: Good. COMPLICATIONS: A 2-hour post chest x-ray revealed pneumothorax, unclear though the cause of this pneumothorax was new or chronic. He ended up getting a pigtail catheter for this eventually, but he was asymptomatic at that time. SPECIMENS: None. URINE OUTPUT: Not applicable. FINDINGS: See below. DRAINS: None. INDICATIONS: This is a 66-year-old gentleman with a past medical history for paroxysmal atrial fibrillation, status post left atrial appendage clip on 11/05/2021, he is on Coumadin and metoprolol after his AVR, but the patient had sleep problems with metoprolol, so he is no longer on it. CHADS2-VASc score of 4, coronary artery disease, history of PCI to the RCA in 06/2003 and then PCI to the proximal LAD and distal RCA in 10/2015. Ultimately had a CABG x3 on 11/05/2021 with SINGH to LAD, SVG to OM and SVG to PDA, aortic stenosis history, status post AVR on 11/05/2021, chronic heart failure with preserved ejection fraction, [place] Heart Association class II, hypertension, hyperlipidemia, hypothyroidism, chronic kidney disease stage III, status post left mastectomy in 10/2017. It was a benign pathology. Obstructive sleep apnea, on CPAP, chronic back problems, sleep problems on beta lionel. He has had evidence of tachybrady syndrome and was recommended a pacemaker. CONSENT: Consent was obtained prior to the patient going into electrophysiology lab. The patient was explained of the risks, benefits, and alternatives to the procedure. Risks include, but not limited to, sudden cardiac , cardiac arrhythmias, cerebrovascular accident, myocardial infarction, injury to the blood vessels, chamber of the heart or lungs, bleeding and infection. The patient understood these risks and agrees to proceed with the procedure as planned. Informed consent was obtained. DESCRIPTION OF PROCEDURE: The patient was brought into electrophysiology lab in a fasting state. He was connected to continuous cardiac monitoring and timeout was performed to ensure the patient's identity and procedure correctly. He was prepped and draped over the left infraclavicular space in normal surgical standard fashion. Monitored conscious sedation was given throughout the procedure for patient's comfort level. Bolton precautions were maintained throughout the procedure. 10 mL of 1% lidocaine-bupivacaine mixture were given in the left deltopectoral groove. Incision was made in the left deltopectoral groove. Blunt dissection was performed down to the pectoralis muscle, then blunt dissection over the pectoralis muscle performed to create a pacemaker pocket. Then, a peripheral venogram was performed to identify the axillary vein. Venous axillary access was obtained on a needlestick; I did not suspect any PTX. A guidewire was inserted without any resistance. A 7-Ethiopian sheath was inserted over the guidewire without any resistance. The dilator was removed and then a second guidewire was inserted through the sheath to allow for retained venous access. Then the sheath was removed, flushed and reinserted over the dilator, and the sheath was reinserted over one of the guidewires, the guidewire and dilator removed. Then, a His C315 sheath was advanced through the sheath into the right ventricle. The guidewire and dilator were removed and the left bundle lead was advanced through the sheath and intracardiac electrogram His bundle recordings were performed, see below for results. Then, I moved the camera into KING 30 and marked where the His was and came down about 2 cm from this in a line that would extend out to the apex to start positioning the left bundle lead. I came on pacing and I saw that I had a nice W form pacing pattern in V1, so I then moved the camera to MOHAWK 30 and gave a series of clockwise turns pausing to see how my pacing complex changed. Ultimately, I had a nice R prime and I gave contrast through the sheath to see how I was well into the septum. I then slit the His C315 sheath under fluoroscopic guidance, leaving the 7-Ethiopian SafeSheath in there while I positioned the right atrial lead. A second 7-Ethiopian sheath was inserted over the retained guidewire, the guidewire and dilator removed. The right atrial lead was then advanced into the right atrium, positioned ultimately in the right atrial appendage. Of note, I did have to reposition it because it was dislodged and I ultimately used a preformed callejas J curve. There was adequate pacing and sensing thresholds and no diaphragmatic stimulation with high output pacing. A pursestring using a 2-[address] needle was placed around the puncture site to prevent any backbleeding. The 7-Ethiopian sheath was peeled away and the lead was fixated to pectoralis muscle using 0 silk suture. The 7-Ethiopian sheath in the left bundle lead was then peeled away and the lead was fixated to pectoralis muscle using 0 silk suture. Then, the pocket was flushed with copious amounts of vancomycin and saline wash and inspected for hemostasis. The pulse generator was attached to the leads making sure the pins were in appropriate position, passed set screws, and set screws were all tightened. Pulse generator was then placed in a TYRX pouch followed then by being placed in the pocket, making sure the leads were lying flat beneath the device. The incision was closed in a 3-layer fashion using 2-0 Vicryl interrupted suture followed by 3-0 Vicryl interrupted suture, followed by 4-0 Monocryl running stitch and Dermabond was applied followed by Telfa and Tegaderm dressing. EQUIPMENT: 1. Pulse generator is a Medtronic Mertens XT DR DENNIS Lyons [id number], serial number [id number]. 2. TYRX pouch, reference [id number], lot number [id number]. 3. Right atrial lead, Medtronic 5076-52 cm, serial number [id number]. 4. Left bundle lead, Medtronic 3830-69 cm, serial number [id number]. INTRAPROCEDURAL FINDINGS: 1. Intracardiac electrogram His bundle recordings: AH 97 milliseconds, HV 52 milliseconds. 2. Right atrial lead, P waves 3.1 millivolts, impedance 556 ohms, threshold 0.5 volts at 0.4 milliseconds. 3. Left bundle lead, R waves 30 millivolts, impedance 834 ohms, threshold 0.4 volts at 0.4 milliseconds. FINAL MEASUREMENTS THROUGH THE DEVICE. 1. Right atrial lead, P waves 1.8 millivolts, impedance 437 ohms, threshold 0.5 volts at 0.4 milliseconds. 2. Left bundle lead, greater than 20 millivolts, impedance 723 ohms, threshold 0.5 volts at 0.4 milliseconds. FINAL PARAMETERS: MVP-R 60/130, right atrial amplitude 3.5 volts, pulse width 0.4 milliseconds, sensitivity 0.3 millivolts. Left bundle lead amplitude 3.5 volts, pulse width 0.4 milliseconds, sensitivity 1.2 millivolts. IMPRESSION: Successful dual chamber rate responsive permanent pacemaker under fluoroscopic guidance along with peripheral venogram and intracardiac electrogram His bundle recording secondary to tachybrady syndrome. PLAN: Monitor the patient post-procedure. A 12-lead ECG, chest x-ray and recheck the device in a few hours. Again, the chest x-ray showed a pretty large pneumothorax, although the patient was asymptomatic which raised the question was some of the PTX located and a chronic one;, but ultimately I did consult pulmonary and he did get a chest tube and was admitted into the hospital. Job ID: [id number] MARTHA
== END 2022-02-09 15:13 | disposition home or self-care (01) | DRG 243 ==
LOC: 2S 06:31 → EP 06:31 → 2S 15:58
DX: I13.0 Hypertensive heart and chronic kidney disease with heart failure and stage 1 through stage 4 chronic kidney disease, or unspecified chronic kidney disease; F32.A Depression, unspecified; Z95.1 Presence of aortocoronary bypass graft; Z79.899 Other long term (current) drug therapy; Z90.5 Acquired absence of kidney; I50.32 Chronic diastolic (congestive) heart failure; E03.9 Hypothyroidism, unspecified; Z90.09 Acquired absence of other part of head and neck; Z88.0 Allergy status to penicillin; Z95.2 Presence of prosthetic heart valve; Z79.01 Long term (current) use of anticoagulants; Z85.828 Personal history of other malignant neoplasm of skin; I49.5 Sick sinus syndrome; F41.9 Anxiety disorder, unspecified; Z79.82 Long term (current) use of aspirin; Y83.8 Other surgical procedures as the cause of abnormal reaction of the patient, or of later complication, without mention of misadventure at the time of the procedure; J95.811 Postprocedural pneumothorax; N18.31 Chronic kidney disease, stage 3a; G47.33 Obstructive sleep apnea (adult) (pediatric); Z95.5 Presence of coronary angioplasty implant and graft; E78.5 Hyperlipidemia, unspecified; G89.29 Other chronic pain; I25.10 Atherosclerotic heart disease of native coronary artery without angina pectoris

== ENCOUNTER 2025-07-18 05:06 | Inpatient (IN) ==
[2025-07-18 05:26] LABS: Hematocrit (blood only) 41.3 % (42.0-52.0); Hemoglobin 13.6 g/dl (14.0-18.0); Immature Granulocytes # (auto) 0.01 K/uL (0.01-0.20); Immature Granulocytes % (auto) 0.1 %; Mean Corpuscular Hemoglobin 29.8 pg (25.0-34.0); Mean Corpuscular Volume 90.4 fL (80.0-100.0); Platelet Count 161 K/uL (130-400); RDW Standard Deviation 43.4 fL (36.4-46.3); Red Blood Count 4.57 M/uL (4.70-6.10); White Blood Count 7.64 K/ul (4.8-10.8)
[2025-07-18 05:44] LABS: Alanine Aminotransferase 22.0 U/L (7-52); Albumin Globulin Ratio 1.4 (0.9-2); Alkaline Phosphatase 74.0 U/L (34-104); Anion Gap 7.0 (3-11); Bilirubin,Total 0.5 mg/dl (0.2-1.0); Blood Urea Nitrogen 42.0 mg/dl (6-23); Calcium 9.0 mg/dl (8.6-10.3); Carbon Dioxide 28.0 mmol/L (21-32); Chloride 103.0 mmol/L (98-107); Creatinine Clr Calc Pharmacy 50.7 ml/min; Globulin 3.0 gm/dl (2.5-4.0); Glucose 117.0 mg/dl (70-99(Fasting)); Potassium 3.9 mmol/L (3.5-5.1); Sodium 138.0 mmol/L (136-145); Total Protein 7.1 gm/dl (6.0-8.3)
--- NOTE | 2025-07-18 06:26 | Emergency Department Note ---
Impression & Plan Kidney stones, Hydronephrosis ED Provider Note Diagnosis: Kidney stone, hydronephrosis Disposition: Admission CHIEF COMPLAINT: Right flank pain, hypertension HPI: Patient is a 69-year-old male presenting with complaint of right flank pain. Patient states started approximately 2 AM this morning. Patient denies any trauma. 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 Patient denies any prior kidney stones. Patient denies nausea or vomiting. Patient denies urinary symptoms. Patient states due to the significant pain at this location he was worried because he only has 1 kidney at this time. Patient found to have elevated blood pressure by EMS. Patient denies any headache or blurred vision. Patient denies any chest pain or shortness of breath. Patient states he has not taken his blood pressure medications yet today. PAST MEDICAL HISTORY: See Below PAST SURGICAL HISTORY: See Below SOCIAL HISTORY: See Below HOME MEDICATIONS: See Below ALLERGIES: See Below VITALS: See Below PHYSICAL EXAMINATION: GENERAL: Well appearing, well nourished, NAD, non-toxic. EYE EXAM: Normal conjunctiva. OROPHARYNX: Moist mucus membranes. Grossly normal dentition. NECK: Supple, LUNGS: Clear to auscultation. Normal chest wall mechanics. HEART: NSR ABDOMEN: Abdomen soft, non-tender, normo-active bowel sounds, no masses, no rebound or guarding BACK: Right flank tenderness SKIN: No rashes and no bruising. UPPER EXTREMITIES: Upper extremities are grossly normal LOWER EXTREMITIES: Grossly normal, no edema. NEURO EXAM: A&O x3,, normal speech, 5 out of 5 muscle strength upper and lower extremities bilaterally, Intact sensation upper and lower extremities bilaterally PSYCH: Cooperative MEDICAL DECISION MAKING: History obtained from: Patient ER Course: Patient is a 69-year-old male presenting with right flank pain. Patient states symptoms started in the middle of the night. Patient denies nausea vomiting or diarrhea. Patient denies urinary symptoms. Patient states he has been told he has a 2 mm stone in his right kidney for many years but has not had kidney stones in the ureter system. 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 Patient found to have elevated blood pressure today. Patient did not take his blood pressure medications this morning before arrival in the emergency room. Patient is not having any symptoms of elevated blood pressure he denies any blurred vision headache chest pain shortness of breath or dizziness. Patient was provided his home morning blood pressure medications. Patient given Dilaudid for pain control due to him already being on oral morphine for chronic back pain. Patient's imaging study shows a 5 mm kidney stone in the ureter causing hydronephrosis. Upon review of patient's old [facility] from [facility] with the help of case management his baseline creatinine is 1.5-1.8. Patient's creatinine today 1.7. Patient's urinalysis currently pending. Will discuss patient's case with urology team. Patient's first dose of Dilaudid brought the patient's pain from a 10 out of 10 to a 7 out of 10. Labs (independently interpreted) are significant for: Creatinine 1.7 baseline is between 1.5-1.8 Medications given: Dilaudid, normal saline Consultants: Urology, discussion with physician graduate research assistant will see patient in consult this morning. Plan for keeping patient n.p.o. and stenting today. Okay that patient is on warfarin. Discussion with hospitalist service. Accept patient for further treatment and evaluation Chronic conditions affecting care: Prior nephrectomy Triage Nursing notes reviewed and agree them. Vital Signs: reviewed and remarkable for: Hypertension Past Med/Surg History Problem List (Updated 07/18/25 @ 08:13 by José Mckeon DO) Hydronephrosis (Acute) Kidney stones (Acute) Hypothyroidism Hypogonadism in male (Acute) Chronic narcotic use (Acute) Back pain (Acute) Medical History Pacemaker Iatrogenic pneumothorax Valvular heart disease Aortic Valve Replacement 11/05/21 Family history of colon cancer Degenerative disc disease Chronic back pain Cancer SCC Anxiety Depression Cardiac murmur Hypertension H/O. NO MEDICATIONS NEEDED CURRENTLY Hyperlipidemia Surgical History History of coronary artery bypass graft CABG x 3 SINGH to LAD SVG to OM PDA 11/05/2021 Fusion of spine L3-L4 History of nephrectomy LEFT R/T LARGE BENIGN GROWTH History of colonoscopy Status post Mohs surgery History of endoscopic sinus surgery History of tonsillectomy History of heart artery stent 1 OR 2 STENTS. 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 Feels Safe at Home: Yes Assistive Devices: None Allergies Allergies Allergy/AdvReac Type Severity Reaction Status Date / Time Penicillins Allergy Mild Unknown Verified 02/11/22 09:28 Home Meds Home Medications Medication Instructions Recorded Confirmed aspirin 81 mg tablet,delayed 81 mg PO QAM 09/29/18 02/11/22 release (Adult Aspirin Regimen) multivitamin 1 tab PO QAM 09/29/18 02/11/22 omega-3 fatty acids 1,000 mg 1,000 mg PO HS 09/29/18 02/11/22 capsule (Fish Oil Concentrate) oxycodone 5 mg capsule 5 mg PO BID PRN Pain 09/29/18 02/11/22 temazepam 15 mg capsule (Restoril) 15 mg PO HS 09/29/18 02/11/22 trazodone 100 mg tablet 200 mg PO HS 09/29/18 02/11/22 levothyroxine 112 mcg tablet 112 mcg PO QAM 11/15/19 02/11/22 (Synthroid) sertraline 100 mg tablet (Zoloft) 100 mg PO QAM 11/15/19 02/11/22 coenzyme Q10 400 mg capsule 400 mg PO DAILY 05/16/20 02/11/22 morphine 30 mg tablet,extended 30 mg PO Q12H 05/16/20 02/11/22 release atorvastatin 80 mg tablet (Lipitor) 80 mg PO DAILY 03/02/21 02/11/22 docusate sodium 100 mg capsule 300 mg PO DAILY 03/02/21 02/11/22 (Colace) ezetimibe 10 mg tablet (Zetia) 10 mg PO DAILY 03/02/21 02/11/22 fluticasone propionate 50 1 spray intranasal DAILY 03/02/21 02/11/22 mcg/actuation nasal spray,suspension (Flonase Allergy Relief) lactobacillus combination no.9 4 4,000 mmu cells PO DAILY 03/02/21 02/11/22 billion cell capsule (Adult 50 Plus Probiotic) melatonin 10 mg capsule 10 mg PO HS PRN Sleep 03/02/21 02/11/22 methylcellulose (with sugar) oral 1 tbsp PO DAILY 03/02/21 02/11/22 powder (Citrucel (sucrose) oral powder) potassium chloride 10 mEq 10 meq PO DAILY 03/02/21 02/11/22 tablet,extended release (Klor-Con) torsemide 20 mg tablet 20 mg PO DAILY 03/02/21 02/11/22 vitamin B complex (B 1 tab PO DAILY 03/02/21 02/11/22 Complex-Vitamin B12 tablet) famotidine 20 mg tablet 40 mg PO DAILY 02/06/22 02/11/22 pantoprazole 40 mg tablet,delayed 40 mg PO DAILY 02/06/22 02/11/22 release Previous Rx's Medication Instructions Recorded diltiazem HCl 120 mg 120 mg PO DAILY #30 caps 02/09/22 capsule,extended release 24 hr Results & Data (ED) Vital Signs Vital Signs - 24 hr 07/18/25 04:52 07/18/25 04:52 07/18/25 05:12 Temperature 36.7 C Temperature Source Oral Pulse Rate 62 Pulse Rate [Apical] Pulse Rate from SpO2 Sensor Respiratory Rate 18 Respiratory Effort / Characteristics Non-Labored Non-Labored Respiratory Depth Normal Normal Blood Pressure 193/109 H 193/109 H Blood Pressure [Right Arm] Blood Pressure Mean 137 121 Blood Pressure Mean [Right Arm] Pulse Oximetry 93 Oxygen Delivery Method Room Air Sepsis Recent Fever Within 48 Hours No Sepsis New/Unexplained Change in Mental Status No Sepsis Action Taken by Nursing No Action Required 07/18/25 05:13 07/18/25 05:15 07/18/25 05:27 Temperature Temperature Source Pulse Rate 66 62 Pulse Rate [Apical] Pulse Rate from SpO2 Sensor 62 Respiratory Rate 16 Respiratory Effort / Characteristics Respiratory Depth Blood Pressure Blood Pressure [Right Arm] Blood Pressure Mean Blood Pressure Mean [Right Arm] Pulse Oximetry 92 Oxygen Delivery Method Room Air Sepsis Recent Fever Within 48 Hours Sepsis New/Unexplained Change in Mental Status Sepsis Action Taken by Nursing 07/18/25 05:30 07/18/25 05:30 07/18/25 05:36 Temperature Temperature Source Pulse Rate 62 64 Pulse Rate [Apical] Pulse Rate from SpO2 Sensor 60 63 Respiratory Rate 19 21 Respiratory Effort / Characteristics Respiratory Depth Blood Pressure 189/108 H Blood Pressure [Right Arm] Blood Pressure Mean 141 Blood Pressure Mean [Right Arm] Pulse Oximetry 93 95 Oxygen Delivery Method Sepsis Recent Fever Within 48 Hours Sepsis New/Unexplained Change in Mental Status Sepsis Action Taken by Nursing 07/18/25 06:02 07/18/25 06:02 07/18/25 06:03 Temperature Temperature Source Pulse Rate 69 Pulse Rate [Apical] Pulse Rate from SpO2 Sensor 70 Respiratory Rate 20 Respiratory Effort / Characteristics Respiratory Depth Blood Pressure 177/107 H 177/107 H Blood Pressure [Right Arm] Blood Pressure Mean 122 122 Blood Pressure Mean [Right Arm] Pulse Oximetry 94 Oxygen Delivery Method Sepsis Recent Fever Within 48 Hours Sepsis New/Unexplained Change in Mental Status Sepsis Action Taken by Nursing 07/18/25 07:00 Temperature Temperature Source Pulse Rate Pulse Rate [Apical] 63 Pulse Rate from SpO2 Sensor Respiratory Rate 18 Respiratory Effort / Characteristics Respiratory Depth Blood Pressure Blood Pressure [Right Arm] 188/111 H Blood Pressure Mean Blood Pressure Mean [Right Arm] 136 Pulse Oximetry 93 Oxygen Delivery Method Sepsis Recent Fever Within 48 Hours Sepsis New/Unexplained Change in Mental Status Sepsis Action Taken by Nursing Laboratory Data 07/18/25 05:16 07/18/25 05:16 Lab Results 07/18/25 07/18/25 Range/Units 05:16 07:36 WBC 7.64 (4.8-10.8) K/ul RBC 4.57 L (4.70-6.10) M/uL Hgb 13.6 L (14.0-18.0) g/dl Hct 41.3 L (42.0-52.0) % MCV 90.4 (80.0-100.0) fL MCH 29.8 (25.0-34.0) pg MCHC 32.9 (32.0-36.0) g/dL RDW Std Deviation 43.4 (36.4-46.3) fL RDW Coeff of Jasmina 13.2 (11.5-14.5) % Plt Count 161 (130-400) K/uL MPV 10.6 (9.4-12.4) fL Immature Gran % (Auto) 0.1 % Neut % (Auto) 65.1 % Lymph % (Auto) 23.3 % Thurston % (Auto) 8.5 % Eos % (Auto) 2.2 % Baso % (Auto) 0.8 % Neut # (Auto) 4.97 (1.40-6.50) K/uL Lymph # (Auto) 1.78 (1.20-3.40) K/uL Thurston # (Auto) 0.65 H (0.11-0.59) K/uL Eos # (Auto) 0.17 (0.00-0.50) K/uL Baso # (Auto) 0.06 (0.00-0.20) K/uL Immature Gran # (Auto) 0.01 (0.01-0.20) K/uL PT 26.5 H (9.0-12.0) Seconds INR 2.7 H (0.9-1.1) APTT 38 H (21-31) Seconds PTT Ratio 1.4 Sodium 138 (136-145) mmol/L Potassium 3.9 (3.5-5.1) mmol/L Chloride 103 (98-107) mmol/L Carbon Dioxide 28 (21-32) mmol/L Anion Gap 7 (3-11) BUN 42 H (6-23) mg/dl Creatinine 1.76 H (0.6-1.4) mg/dl Est Cr Clr Drug Dosing 50.7 ml/min eGFR 40.83 BUN/Creatinine Ratio 23.9 H (10-20) Glucose 117 H (70-99(Fasting)) mg/dl Calcium 9.0 (8.6-10.3) mg/dl Total Bilirubin 0.5 (0.2-1.0) mg/dl AST 26 (13-39) U/L ALT 22 (7-52) U/L Alkaline Phosphatase 74 (34-104) U/L Total Protein 7.1 (6.0-8.3) gm/dl Albumin 4.1 (3.4-5.0) gm/dl Globulin 3.0 (2.5-4.0) gm/dl Albumin/Globulin Ratio 1.4 (0.9-2) Urine Comment Administered Medications Discontinued Medications Hydromorphone HCl (Hydromorphone Inj 1 Mg/Ml Syringe) 1 mg IV NOW STA Stop: 07/18/25 06:19 Last Admin: 07/18/25 06:27 Dose: 1 mg Documented By: SANDIE Hydromorphone HCl (Hydromorphone Inj 1 Mg/Ml Syringe) 1 mg IV NOW STA Stop: 07/18/25 07:39 Last Admin: 07/18/25 07:43 Dose: 1 mg Documented By: ROD Lisinopril (Lisinopril 10 Mg Tab) 10 mg PO ONCE ONE Stop: 07/18/25 06:18 Last Admin: 07/18/25 06:29 Dose: 10 mg Documented By: SANDIE Verapamil HCl (Verapamil Hcl 180 Mg Tabcr) 180 mg PO ONCE ONE Stop: 07/18/25 06:18 Last Admin: 07/18/25 06:29 Dose: 180 mg Documented By: SANDIE Imaging Data Radiologist's Impression: Chest X-Ray 07/18/25 05:13 EXAM: XR chest 1V portable CLINICAL HISTORY: Hypertension. TECHNIQUE: An X-ray image of the chest is obtained in AP projection. COMPARISON: 02/11/2022 CR. FINDINGS: Pulmonary Parenchyma: No consolidation or collapse. Left basal veiling with obscured pleural recess related to subsegmental atelectasis, rather stable. No evidence of pleural effusion. No evidence of pneumothorax Heart and Mediastinum: Heart size and shape are normal. No mediastinal widening or masses. prominent hilar shadows, secondary to vascular prominence. Bony Thorax: Stable sternotomy sutures. Thoracic spondylosis. Stable cardiac pacemaker. Soft Tissues: Soft tissues overlying the chest wall are unremarkable. Applied loop monitor, unchanged. IMPRESSION: No acute cardiopulmonary abnormalities. No interval changes. Electronically signed by Alireza Portillo 07-18-2025 08:05 AM Abdomen/Pelvis CT 07/18/25 06:16 EXAM: CT abd pelvis wo con CLINICAL HISTORY: right flank pain TECHNIQUE: Contiguous axial images were obtained from the level of the diaphragm to the pubic symphysis without intravenous or oral contrast. Coronal and sagittal reconstructions were likewise performed and indicated to increase the sensitivity for detecting clinically relevant pathology. CT scan was performed according to ALARA (as low as reasonable achievable). COMPARISON: None. FINDINGS: The visualized lung bases are clear. Sliding hiatus hernia noted. Evaluation of the abdominal and pelvic visceral organs is limited without intravenous contrast. The unenhanced liver, spleen, pancreas, and adrenal glands are grossly unremarkable. The gallbladder is present. Absent left kidney - surgically removed. Right kidney is normal in size and attenuation. Mild right perinephric and periureteric fat stranding. Right kidney show nonobstructing calculus of size 2mm in middle calyx. Right kidney shows mild hydronephrosis due to obstructing calculus of size 5 mm involving right upper ureter, just distal to pelviureteric junction. The urinary bladder is normal in contour. Pelvic viscera are grossly unremarkable. No adenopathy or fluid collections are seen. No evidence of focal or diffuse bowel wall thickening or evidence of bowel obstruction is seen. The appendix is visualized in the right lower quadrant and appears within normal limits. The aorta is normal in caliber. No aggressive appearing osseous lesions are identified. Postoperativechanges in the visible spine with multiple fixation screws are seen without obvious loosening/fracture. IMPRESSION: Absent left kidney - surgically removed. Right kidney show nonobstructing calculus of size 2mm in middle calyx. Right kidney shows mild hydronephrosis due to obstructing calculus of size 5 mm involving right upper ureter, just distal to pelviureteric junction. Electronically signed by Venkata Villanueva 07-18-2025 07:18 AM Discharge Plan Visit Data Chief Complaint: Hypertension Stated Complaint: HYPERTENSION, KIDNEY PAIN ED Provider: José Mckeon Discharge Problem: Kidney stones, Hydronephrosis Condition: Fair Forms Stand Alone Forms: My [facility] [employer] Prescriptions Prescriptions: No Action atorvastatin [Lipitor] 80 mg tablet 80 mg PO DAILY torsemide 20 mg tablet 20 mg PO DAILY Rx Instructions: MWF takes 40 mg potassium chloride [Klor-Con 10] 10 mEq tablet extended release 10 meq PO DAILY ezetimibe [Zetia] 10 mg tablet 10 mg PO DAILY Citrucel (sucrose) Powder 1 tbsp PO DAILY melatonin 10 mg capsule 10 mg PO HS PRN (Reason: Sleep) vitamin B complex [B Complex-Vitamin B12] Tablet 1 tab PO DAILY Adult 50 Plus Probiotic 4 billion cell capsule 4,000 mmu cells PO DAILY Rx Instructions: administer with a meal docusate sodium [Colace] 100 mg capsule 300 mg PO DAILY fluticasone propionate [Flonase Allergy Relief] 50 mcg/actuation spray,suspension 1 spray intranasal DAILY Rx Instructions: administer into each nostril aspirin [Adult Aspirin Regimen] 81 mg tablet,delayed release (DR/EC) 81 mg PO QAM oxycodone 5 mg capsule 5 mg PO BID PRN (Reason: Pain) multivitamin tablet 1 tab PO QAM omega-3 fatty acids [Fish Oil Concentrate] 1,000 mg capsule 1,000 mg PO HS temazepam [Restoril] 15 mg capsule 15 mg PO HS trazodone 100 mg tablet 200 mg PO HS morphine 30 mg tablet extended release 30 mg PO Q12H coenzyme Q10 400 mg capsule 400 mg PO DAILY levothyroxine [Synthroid] 112 mcg tablet 112 mcg PO QAM sertraline [Zoloft] 100 mg Tablet 100 mg PO QAM famotidine 20 mg Tablet 40 mg PO DAILY pantoprazole 40 mg Tablet,Delayed Release (Dr/Ec) 40 mg PO DAILY diltiazem HCl 120 mg capsule,extended release 24hr 120 mg PO DAILY Qty: 30 11RF Referrals Referrals: Rolando Valdez MD [Primary Care Provider] -
[2025-07-18] MEDS: HYDROmorphone INJ 1 MG/ML SYRINGE IV STA ×2 (06:27→07:43)
[2025-07-18] MEDS: VERAPAMIL HCL 180 MG TABCR PO ONE (06:29)
[2025-07-18 06:43] LABS: INR 2.7 (0.9-1.1); Partial Thromboplastin Time 38 Seconds (21-31); Prothrombin Time 26.5 Seconds (9.0-12.0)
--- NOTE | 2025-07-18 07:18 | CT Scan Report ---
EXAM: CT abd pelvis wo con CLINICAL HISTORY: right flank pain TECHNIQUE: Contiguous axial images were obtained from the level of the diaphragm to the pubic symphysis without intravenous or oral contrast. Coronal and sagittal reconstructions were likewise performed and indicated to increase the sensitivity for detecting clinically relevant pathology. CT scan was performed according to ALARA (as low as reasonable achievable). COMPARISON: None. FINDINGS: The visualized lung bases are clear. Sliding hiatus hernia noted. Evaluation of the abdominal and pelvic visceral organs is limited without intravenous contrast. The unenhanced liver, spleen, pancreas, and adrenal glands are grossly unremarkable. The gallbladder is present. Absent left kidney - surgically removed. Right kidney is normal in size and attenuation. Mild right perinephric and periureteric fat stranding. Right kidney show nonobstructing calculus of size 2mm in middle calyx. Right kidney shows mild hydronephrosis due to obstructing calculus of size 5 mm involving right upper ureter, just distal to pelviureteric junction. The urinary bladder is normal in contour. Pelvic viscera are grossly unremarkable. No adenopathy or fluid collections are seen. No evidence of focal or diffuse bowel wall thickening or evidence of bowel obstruction is seen. The appendix is visualized in the right lower quadrant and appears within normal limits. The aorta is normal in caliber. No aggressive appearing osseous lesions are identified. Postoperativechanges in the visible spine with multiple fixation screws are seen without obvious loosening/fracture. IMPRESSION: Absent left kidney - surgically removed. Right kidney show nonobstructing calculus of size 2mm in middle calyx. Right kidney shows mild hydronephrosis due to obstructing calculus of size 5 mm involving right upper ureter, just distal to pelviureteric junction. Electronically signed by Venkata Villanueva 07-18-2025 07:18 AM
--- NOTE | 2025-07-18 08:05 | XRay Report ---
EXAM: XR chest 1V portable CLINICAL HISTORY: Hypertension. TECHNIQUE: An X-ray image of the chest is obtained in AP projection. COMPARISON: 02/11/2022 CR. FINDINGS: Pulmonary Parenchyma: No consolidation or collapse. Left basal veiling with obscured pleural recess related to subsegmental atelectasis, rather stable. No evidence of pleural effusion. No evidence of pneumothorax Heart and Mediastinum: Heart size and shape are normal. No mediastinal widening or masses. prominent hilar shadows, secondary to vascular prominence. Bony Thorax: Stable sternotomy sutures. Thoracic spondylosis. Stable cardiac pacemaker. Soft Tissues: Soft tissues overlying the chest wall are unremarkable. Applied loop monitor, unchanged. IMPRESSION: No acute cardiopulmonary abnormalities. No interval changes. Electronically signed by Alireza Portillo 07-18-2025 08:05 AM
[2025-07-18 08:47] LABS: Appearance Urine Clear (Clear); Bacteria Urine Automated None Seen (None Seen); Cast Urine Automated 0-2 /lpf (0-2); Epithelial Cell Urine Auto 0-2 /hpf (0-2); Glucose Urine UA Negative (Negative); RBC Urine Automated >20 /hpf (0-2); WBC Urine Automated 0-5 /hpf (0-5)
--- NOTE | 2025-07-18 08:52 | History & Physical Report ---
Date of Service July 18, 2025 Assessment & Plan (1) Calculus of right ureter: (2) Hydronephrosis concurrent with and due to calculi of kidney and ureter: (3) Uncontrolled hypertension: (4) Chronic renal failure (CRF), stage 3 (moderate): (5) Solitary kidney, acquired: (6) Chronic heart failure with preserved ejection fraction: (7) Hypothyroidism: (8) Narcotic dependency, continuous: (9) Failed back syndrome: (10) Paroxysmal atrial fibrillation: (11) History of pacemaker: (12) Aortic stenosis: (13) History of aortic valve replacement with bioprosthetic valve: Plan Patient 69-year-old gentleman with acute onset of right flank pain due to obstructing 5 mm ureteric stone with hydronephrosis. Patient is significant pain requires hospital level care and intervention. Observe in the hospital Consult urology for surgical intervention Continue outpatient medications as appropriate Anticipate blood pressure will improve as the pain is uncontrolled. Patient reports that his blood pressure has been fluctuating and they have been working on his medications outpatient. Will not change his outpatient medications at this time Pain control Nausea control Some gentle IV hydration Monitor renal function Continue warfarin therapy, Monitor INR History of Present Illness Chief Complaint: Acute onset of right flank pain Primary Care Provider: Rolando Valdez MD Patient 69-year-old gentleman with history of solitary kidney status post removal of left kidney for benign reasons, presented to the emergency room with acute onset of right flank pain and uncontrolled hypertension. Evaluation in the emergency room shows an obstructing 5 mm ureteric stone on the right. Patient has some chronic cardiac issues Including paroxysmal atrial fibrillation, coronary disease and status post pacemaker insertion. He is on chronic anticoagulation. These issues seem to be stable. Patient's hypertensio n was significantly uncontrolled when he presented. Has improved since he has had some pain control. Patient reports that his blood pressure has been fluctuating throughout the summer and they have been trying to adjust his medications. Sometimes it is extremely high, other times his blood pressure is low to the point where asymptomatic. Emergency department contacted urology. They are planning on taking him to the operating room for stent placement they are comfortable with taking him to the operating room with his current INR. Time of my evaluation patient still in a fair amount of pain but somewhat improved. He denies any fever or chills. No cough or cold symptoms. No chest pain or shortness of breath. A little bit of nausea due to pain and meds but prior to this morning he was feeling well. No new problems with his bowels or bladder. Has had some swelling in his left leg but this is most likely due to vein harvesting for his bypass. No other significant joint problems. He has some chronic back pains and is on chronic narcotic management. Allergies Allergy/AdvReac Type Severity Reaction Status Date / Time Penicillins Allergy Mild Unknown Verified 02/11/22 09:28 Home Medications Medication Instructions Recorded Confirmed Type aspirin 81 mg tablet,delayed 81 mg PO QAM 09/29/18 02/11/22 History release (Adult Aspirin Regimen) multivitamin 1 tab PO QAM 09/29/18 02/11/22 History omega-3 fatty acids 1,000 mg 1,000 mg PO HS 09/29/18 02/11/22 History capsule (Fish Oil Concentrate) oxycodone 5 mg capsule 5 mg PO BID PRN Pain 09/29/18 02/11/22 History temazepam 15 mg capsule (Restoril) 15 mg PO HS 09/29/18 02/11/22 History trazodone 100 mg tablet 200 mg PO HS 09/29/18 02/11/22 History levothyroxine 112 mcg tablet 112 mcg PO QAM 11/15/19 02/11/22 History (Synthroid) sertraline 100 mg tablet (Zoloft) 100 mg PO QAM 11/15/19 02/11/22 History coenzyme Q10 400 mg capsule 400 mg PO DAILY 05/16/20 02/11/22 History morphine 30 mg tablet,extended 30 mg PO Q12H 05/16/20 02/11/22 History release atorvastatin 80 mg tablet (Lipitor) 80 mg PO DAILY 03/02/21 02/11/22 History docusate sodium 100 mg capsule 300 mg PO DAILY 03/02/21 02/11/22 History (Colace) ezetimibe 10 mg tablet (Zetia) 10 mg PO DAILY 03/02/21 02/11/22 History fluticasone propionate 50 1 spray intranasal DAILY 03/02/21 02/11/22 History mcg/actuation nasal spray,suspension (Flonase Allergy Relief) lactobacillus combination no.9 4 4,000 mmu cells PO DAILY 03/02/21 02/11/22 History billion cell capsule (Adult 50 Plus Probiotic) melatonin 10 mg capsule 10 mg PO HS PRN Sleep 03/02/21 02/11/22 History methylcellulose (with sugar) oral 1 tbsp PO DAILY 03/02/21 02/11/22 History powder (Citrucel (sucrose) oral powder) potassium chloride 10 mEq 10 meq PO DAILY 03/02/21 02/11/22 History tablet,extended release (Klor-Con) torsemide 20 mg tablet 20 mg PO DAILY 03/02/21 02/11/22 History vitamin B complex (B 1 tab PO DAILY 03/02/21 02/11/22 History Complex-Vitamin B12 tablet) famotidine 20 mg tablet 40 mg PO DAILY 02/06/22 02/11/22 History pantoprazole 40 mg tablet,delayed 40 mg PO DAILY 02/06/22 02/11/22 History release diltiazem HCl 120 mg 120 mg PO DAILY #30 caps 02/09/22 02/11/22 Rx capsule,extended release 24 hr Past Med/Surg History Problem List (Updated 07/18/25 @ 08:58 by Kai Ware DO) Chronic renal failure (CRF), stage 3 (moderate) Solitary kidney, acquired History of aortic valve replacement with bioprosthetic valve Chronic heart failure with preserved ejection fraction Aortic stenosis History of pacemaker Paroxysmal atrial fibrillation Failed back syndrome Narcotic dependency, continuous Uncontrolled hypertension Hydronephrosis concurrent with and due to calculi of kidney and ureter Calculus of right ureter Hydronephrosis (Acute) Kidney stones (Acute) Hypothyroidism Hypogonadism in male (Acute) Chronic narcotic use (Acute) Back pain (Acute) Medical History Pacemaker Iatrogenic pneumothorax Valvular heart disease Aortic Valve Replacement 11/05/21 Family history of colon cancer Degenerative disc disease Chronic back pain Cancer SCC Anxiety Depression Cardiac murmur Hypertension H/O. NO MEDICATIONS NEEDED CURRENTLY Hyperlipidemia Surgical History History of coronary artery bypass graft CABG x 3 SINGH to LAD SVG to OM PDA 11/05/2021 Fusion of spine L3-L4 History of nephrectomy LEFT R/T LARGE BENIGN GROWTH History of colonoscopy Status post Mohs surgery History of endoscopic sinus surgery History of tonsillectomy History of heart artery stent 1 OR 2 STENTS. 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 Sclera clear Neck: Soft, no adenopathy Lungs: Clear to auscultation, decreased, no wheezes rales or rhonchi CV: S1-S2, regular, systolic murmur Abdomen: Soft, nontender, nondistended, some mild right flank pain Extremities: Trace pretibial edema left lower extremity greater than right Musculoskeletal: No significant joint tenderness Neuro: No focal deficits Psych: Cooperative, normal mood Results & Data Results & Data Vital Signs (Past 12 Hours) Vital Signs Temp Pulse Pulse Resp BP BP Pulse Ox 07/18/25 07:00 63 18 188/111 H 93 07/18/25 06:03 69 20 94 07/18/25 06:02 177/107 H 07/18/25 06:02 177/107 H 07/18/25 05:36 64 21 95 07/18/25 05:30 189/108 H 07/18/25 05:30 62 19 93 07/18/25 05:27 62 16 92 07/18/25 05:15 66 07/18/25 05:13 07/18/25 05:12 193/109 H 07/18/25 04:52 36.7 C 62 18 193/109 H 93 O2 Del Method 07/18/25 07:00 07/18/25 06:03 07/18/25 06:02 07/18/25 06:02 07/18/25 05:36 07/18/25 05:30 07/18/25 05:30 07/18/25 05:27 07/18/25 05:15 07/18/25 05:13 Room Air 07/18/25 05:12 07/18/25 04:52 Room Air Diagnostic Findings Reviewed imaging, laboratory and diagnostic studies. Pertinent findings as below. WBC 7.6 Hemoglobin 13.6 Platelets of 161 Electrolytes stable Creatinine 1.76 this seems to be approximately his baseline Glucose 117, nonfasting LFTs stable Urinalysis unremarkable for signs of infection CT of the abdomen pelvis reviewed, right 2 mm kidney stone, right 5 mm ureteral stone with some hydronephrosis Absent left kidney personally reviewed chest x-ray, no definitive congestion or infiltrates Code Status & VTE Plan VTE Prophylaxis Plan VTE Prophylaxis will be ordered: Yes
[2025-07-18] MEDS: HYDROmorphone INJ 1 MG/ML SYRINGE IV PRN (09:00)
[2025-07-18] MEDS: ONDANSETRON INJ 2 MG/ML 2 ML VIAL IV PRN (09:00)
[2025-07-18] MEDS ORDERED: LIDOCAINE 2% 2 ML VIAL/AMP(20MG/ML) INFIL ONE (09:31)
[2025-07-18] MEDS ORDERED: PROPOFOL IV EMULSION 10 MG/ML 20 ML VIAL IV ONE (09:31)
--- NOTE | 2025-07-18 09:44 | Urology Consultation ---
Date of Consultation July 18, 2025 Assessment & Plan (1) Solitary kidney, acquired: (2) Calculus of right ureter: (3) Hydronephrosis concurrent with and due to calculi of kidney and ureter: Plan 69 yo male with a history of solitary kidney admitted with an obstructing right ureteral stone and MAYO We discussed acute stone management with cystoscopy and stent placement. Ureteral stents were discussed as well as postoperative issues and pain management. He is aware a second procedure will be needed for stone treatment. Risks and benefits were discussed. Expected clinical course reviewed. All questions were answered. Will plan to proceed to the OR today for cystoscopy, right retrograde pyelogram, right ureteral stent placement with Dr. Kelly. Risks and benefits to be reviewed with patient by Dr. Kelly. Keep NPO. Will cover with Ancef preoperatively. Urology will follow. Supervising Physician Co-Signing Physician Notes Discussed patient with DENNISE. Agree with plan. Given obstructing stone and solitary kidney, recommended cystoscopy with stent placement. Consent obtained. Patient marked. Ancef to OR. History of Present Illness History of Present Illness 69-year-old male with history of left nephrectomy who presented to the emergency room with acute onset of right flank pain and uncontrolled hypertension. In the ED, he was afebrile, hypertensive, not tachycardic. Labs showing no leukocytosis and creatinine of 1.76. Urinalysis showing 3+ blood, >20RBC otherwise negative. CT abdomen pelvis demonstrated an obstructing 5 mm right ureteral stone. He was given IV fluids, Dilaudid, Zofran in the ED. He is being admitted to medicine service. He is on Warfarin. Patient seen at bedside in the ED this morning. He is awake and resting in bed on arrival. No acute distress. Had some tea around 3AM but otherwise no food. Still with right sided pain, managing with medication. Has voided small amount. He does follow with [facility] urology. History of left nephrectomy in [place] approximately 5 years ago. Allergies Allergy/AdvReac Type Severity Reaction Status Date / Time Milk Containing Products Allergy Severe Gastrointestinal Verified 07/18/25 09:44 (Dairy) Upset Penicillins Allergy Mild Unknown Verified 07/18/25 09:44 Home Medications Medication Instructions Recorded Confirmed Type aspirin 81 mg tablet,delayed 81 mg PO QAM 09/29/18 07/18/25 History release (Adult Aspirin Regimen) multivitamin 1 tab PO QAM 09/29/18 07/18/25 History sertraline 100 mg tablet (Zoloft) 100 mg PO QAM 11/15/19 07/18/25 History coenzyme Q10 400 mg capsule 400 mg PO QAM 05/16/20 07/18/25 History morphine 30 mg tablet,extended 30 mg PO Q12H 05/16/20 07/18/25 History release atorvastatin 80 mg tablet (Lipitor) 80 mg PO HS 03/02/21 07/18/25 History docusate sodium 100 mg capsule 300 mg PO HS 03/02/21 07/18/25 History (Colace) ezetimibe 10 mg tablet (Zetia) 10 mg PO QAM 03/02/21 07/18/25 History fluticasone propionate 50 1 spray intranasal DAILY 03/02/21 07/18/25 History mcg/actuation nasal spray,suspension (Flonase Allergy Relief) lactobacillus combination no.9 4 4,000 mmu cells PO QAM 03/02/21 07/18/25 History billion cell capsule (Adult 50 Plus Probiotic) melatonin 10 mg capsule 10 mg PO HS PRN Sleep 03/02/21 07/18/25 History methylcellulose (with sugar) oral 1 tbsp PO QAM 03/02/21 07/18/25 History powder (Citrucel (sucrose) oral powder) famotidine 20 mg tablet 40 mg PO QAM 02/06/22 07/18/25 History pantoprazole 40 mg tablet,delayed 40 mg PO QAM 02/06/22 07/18/25 History release diltiazem HCl 120 mg 120 mg PO HS 07/18/25 07/18/25 History capsule,extended release 24 hr gabapentin 300 mg capsule 300 mg PO HS 07/18/25 07/18/25 History levothyroxine 100 mcg tablet 100 mcg PO DAILYBB 07/18/25 07/18/25 History lisinopril 5 mg tablet 5 mg PO BID 07/18/25 07/18/25 History omega-3 fatty acids 1,000 mg 1,000 mg PO QAM 07/18/25 07/18/25 History capsule tamsulosin 0.4 mg capsule 0.4 mg PO QAM 07/18/25 07/18/25 History torsemide 5 mg tablet 5 mg PO QAM 07/18/25 07/18/25 History verapamil 180 mg 24 hr 180 mg PO QAM 07/18/25 07/18/25 History capsule,extended release warfarin 5 mg tablet 5 mg PO QA 07/18/25 07/18/25 History Patient History Medical History Pacemaker Iatrogenic pneumothorax Valvular heart disease Aortic Valve Replacement 11/05/21 Family history of colon cancer Degenerative disc disease Chronic back pain Cancer SCC Anxiety Depression Cardiac murmur Hypertension H/O. NO MEDICATIONS NEEDED CURRENTLY Hyperlipidemia Surgical History History of coronary artery bypass graft CABG x 3 SINGH to LAD SVG to OM PDA 11/05/2021 Fusion of spine L3-L4 History of nephrectomy LEFT R/T LARGE BENIGN GROWTH History of colonoscopy Status post Mohs surgery History of endoscopic sinus surgery History of tonsillectomy History of heart artery stent 1 OR 2 STENTS. 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 Feels Safe at Home: Yes Assistive Devices: None Review of Systems Review of Systems: All systems reviewed & are unremarkable except as noted in HPI & below Physical Exam Constitutional: no acute distress Respiratory: no respiratory distress and no labored breathing Musculoskeletal: Head/Neck/Chest: normocephalic Skin: No visible rashes or lesions to exposed skin areas Neurologic: moves all extremities and awake Psychiatric: A+Ox3, euthymic affect Results & Data Vital Signs (Past 12 Hours) Vital Signs Temp Pulse Pulse Resp BP BP Pulse Ox 07/18/25 09:18 68 07/18/25 09:00 72 16 168/82 H 97 07/18/25 07:00 63 18 188/111 H 93 07/18/25 06:03 69 20 94 07/18/25 06:02 177/107 H 07/18/25 06:02 177/107 H 07/18/25 05:36 64 21 95 07/18/25 05:30 189/108 H 07/18/25 05:30 62 19 93 07/18/25 05:27 62 16 92 07/18/25 05:15 66 07/18/25 05:13 07/18/25 05:12 193/109 H 07/18/25 04:52 36.7 C 62 18 193/109 H 93 O2 Del Method O2 Flow Rate 07/18/25 09:18 07/18/25 09:00 Nasal Cannula 2 07/18/25 07:00 07/18/25 06:03 07/18/25 06:02 07/18/25 06:02 07/18/25 05:36 07/18/25 05:30 07/18/25 05:30 07/18/25 05:27 07/18/25 05:15 07/18/25 05:13 Room Air 07/18/25 05:12 07/18/25 04:52 Room Air PG Care Time/CCT Total # of Minutes Spent Total Time Spent with Patient: Total time spent is greater than 50% in coordination of care (as documented) at patient's floor/unit and/or counseling patient: Coding Level of Care Code 14837 INT INP/OBS CARE 2/55MIN Diagnoses Solitary kidney, acquired Z90.5 Calculus of right ureter N20.1 Hydronephrosis concurrent with and due to calculi of kidney and ureter N13.2
[2025-07-18] MEDS: LACTATED RINGER'S 1,000 ML IV SCH (09:56)
--- NOTE | 2025-07-18 10:14 | Anesthesiology Consultation ---
Date of Service July 18, 2025 Assessment & Plan Chart Review Chart Review: Acceptable Risk for Surgery and Patient NOT seen in Pre Admission Testing Consults Requested none ASA [id number] Proposed Anesthesia Anesthesia Type: MAC Risk / Benefits Reviewed With: PT / POA / Parent / Guardian, Accepts Plan and Informed Consent Obtained History Surgery Operation Date: 07/18/25 14:40 Proposed Procedures p Cystoscopy, Right Retrograde Pyelogram, Right Ureteral Stent Placement - Margarito Kelly MD Height/Weight Height: 6 ft 1 in Weight: 113 kg Allergies Allergy/AdvReac Type Severity Reaction Status Date / Time Milk Containing Products Allergy Severe Gastrointestinal Verified 07/18/25 09:44 (Dairy) Upset Penicillins Allergy Mild Unknown Verified 07/18/25 09:44 Medications Home Medications Medication Instructions Recorded Confirmed Last Taken aspirin 81 mg tablet,delayed 81 mg PO QAM 09/29/18 07/18/25 07/17/25 release (Adult Aspirin Regimen) multivitamin 1 tab PO QAM 09/29/18 07/18/25 07/17/25 sertraline 100 mg tablet (Zoloft) 100 mg PO QAM 11/15/19 07/18/25 07/17/25 coenzyme Q10 400 mg capsule 400 mg PO QAM 05/16/20 07/18/25 07/17/25 morphine 30 mg tablet,extended 30 mg PO Q12H 05/16/20 07/18/25 07/17/25 release atorvastatin 80 mg tablet (Lipitor) 80 mg PO HS 03/02/21 07/18/25 07/17/25 docusate sodium 100 mg capsule 300 mg PO HS 03/02/21 07/18/25 07/17/25 (Colace) ezetimibe 10 mg tablet (Zetia) 10 mg PO QAM 03/02/21 07/18/25 07/17/25 fluticasone propionate 50 1 spray intranasal DAILY 03/02/21 07/18/25 07/17/25 mcg/actuation nasal spray,suspension (Flonase Allergy Relief) lactobacillus combination no.9 4 4,000 mmu cells PO QAM 03/02/21 07/18/25 07/17/25 billion cell capsule (Adult 50 Plus Probiotic) melatonin 10 mg capsule 10 mg PO HS PRN Sleep 03/02/21 07/18/25 07/17/25 methylcellulose (with sugar) oral 1 tbsp PO QAM 03/02/21 07/18/25 07/17/25 powder (Citrucel (sucrose) oral powder) famotidine 20 mg tablet 40 mg PO QAM 02/06/22 07/18/25 07/17/25 pantoprazole 40 mg tablet,delayed 40 mg PO QAM 02/06/22 07/18/25 07/17/25 release diltiazem HCl 120 mg 120 mg PO 07/18/25 07/18/25 07/17/25 capsule,extended release 24 hr gabapentin 300 mg capsule 300 mg PO HS 07/18/25 07/18/25 07/17/25 levothyroxine 100 mcg tablet 100 mcg PO DAILYBB 07/18/25 07/18/25 07/17/25 lisinopril 5 mg tablet 5 mg PO BID 07/18/25 07/18/25 07/17/25 omega-3 fatty acids 1,000 mg 1,000 mg PO QA 07/18/25 07/18/25 07/17/25 capsule tamsulosin 0.4 mg capsule 0.4 mg PO QAM 07/18/25 07/18/25 07/17/25 torsemide 5 mg tablet 5 mg PO QAM 07/18/25 07/18/25 07/17/25 verapamil 180 mg 24 hr 180 mg PO QAM 07/18/25 07/18/25 07/17/25 capsule,extended release warfarin 5 mg tablet 5 mg PO QA 07/18/25 07/18/25 07/17/25 Active Medications Generic Name Dose Route Start Last Admin Trade Name Reema PRN Reason Stop Dose Admin Hydromorphone HCl 1 mg 07/18/25 08:33 07/18/25 09:00 Hydromorphone Inj 1 Mg/Ml Syringe IV 08/01/25 08:32 1 mg Q1H PRN Administration Pain Lactated Ringer's 1,000 mls @ 15 mls/hr 07/18/25 09:30 07/18/25 09:56 Lr IV 07/21/25 09:29 15 mls/hr .Q24H MINERVA Administration Ondansetron HCl 4 mg 07/18/25 08:33 07/18/25 09:00 Ondansetron Inj 2 Mg/Ml 2 Ml Vial IV 08/17/25 08:32 4 mg Q6H PRN Administration Nausea And Vomiting NPO Date Last Intake of Fluids: 07/18/25 Time Last Intake of Fluids: 03:00 Last Intake of Fluids Comment: tea with honey and lemon, water Date Last Intake of Solids: 07/17/25 Time Last Intake of Solids: 20:00 Past Medical History Medical History Pacemaker Iatrogenic pneumothorax Valvular heart disease Aortic Valve Replacement 11/05/21 Family history of colon cancer Degenerative disc disease Chronic back pain Cancer SCC Anxiety Depression Cardiac murmur Hypertension H/O. NO MEDICATIONS NEEDED CURRENTLY Hyperlipidemia Exercise / Class Metabolic Activity III < 4 Walking/Shop/Light housework Past Family History Family History Brother Colorectal cancer Father Coronary heart disease Mother Osteoporosis Parkinson disease Past Surgical History Surgical History History of coronary artery bypass graft CABG x 3 SINGH to LAD SVG to OM PDA 11/05/2021 Fusion of spine L3-L4 History of nephrectomy LEFT R/T LARGE BENIGN GROWTH History of colonoscopy Status post Mohs surgery History of endoscopic sinus surgery History of tonsillectomy History of heart artery stent 1 OR 2 STENTS. (PLACED 2002) History of cardiac cath Past Anesthesia History No Hx of Anesthesia Complications and No Family Hx of Anesthesia Complications History of PONV No Hx of PONV and No Hx of Motion Sickness Social History Smoking Status: Never smoker Do You Dip or Chew Tobacco: No Hx Alcohol Use: No alcohol intake frequency: 0-2 drinks per day Hx Substance Use: No substance use type: does not use Physical Exam Vital Signs Last Vital Signs Temp 37.1 C 07/18/25 09:57 Pulse 96 H 07/18/25 09:57 Resp 20 07/18/25 09:57 BP 148/78 H 07/18/25 09:57 Pulse Ox 93 07/18/25 09:57 O2 Del Method Room Air 07/18/25 09:57 O2 Flow Rate 2 07/18/25 09:00 Constitutional + obese; no acute distress ENMT Mouth: no TMJ abnormality and no dentition abnormality Thyromental Distance: > or= 3.5 Finger Breadths Mallampati Class: II Neck normal visual inspection, trachea midline and + facial hair; neck extension not limited Respiratory normal respiratory effort Auscultation: + diminished lung sounds Cardiovascular Rate/Rhythm: + abnormal rate (paced) and + abnormal rhythm (paced) Heart Sounds: + murmur Vessels: no carotid bruit Chest (Breasts) Chest: + pacemaker Musculoskeletal Spine: normal cervical ROM and no pain with cervical ROM Extremities: extremities normal to inspection; full ROM of extremities Neurologic moves all extremities Motor/Sensory: no sensory deficit Psychiatric Orientation: alert and oriented x 3 Testing Laboratory Results 07/18/25 05:16 07/18/25 05:16 PT 26.5 Seconds (9.0-12.0) H 07/18/25 05:16 INR 2.7 (0.9-1.1) H 07/18/25 05:16 APTT 38 Seconds (21-31) H 07/18/25 05:16 Urine Color Yellow 07/18/25 07:36 Urine Appearance Clear (Clear) 07/18/25 07:36 Urine pH 5.5 (4.5-7.5) 07/18/25 07:36 Ur Specific [place] 1.016 (1.000-1.030) 07/18/25 07:36 Urine Protein Negative (Negative) 07/18/25 07:36 Urine Glucose (UA) Negative (Negative) 07/18/25 07:36 Urine Ketones Negative (Negative) 07/18/25 07:36 Urine Nitrite Negative (Negative) 07/18/25 07:36 Ur Leukocyte Esterase Negative (Negative) 07/18/25 07:36 Urine WBC (Auto) 0-5 /hpf (0-5) 07/18/25 07:36 Urine RBC (Auto) >20 /hpf (0-2) H 07/18/25 07:36 U Hyaline Cast (Auto) 0-2 /lpf (0-2) 07/18/25 07:36 U Epithel Cells (Auto) 0-2 /hpf (0-2) 07/18/25 07:36 Urine Bacteria (Auto) None Seen (None Seen) 07/18/25 07:36
--- NOTE | 2025-07-18 10:17 | Communication Note ---
Date of Service: July 18, 2025 07/18/[id number] 07/18/2025-EKG-A paced @ 74 w/ prolonged AV conduction w/ occas V paced complexes
[2025-07-18] MEDS ORDERED: ATROPINE SULFATE 0.1 MG/ML 10ML SYR IV PRN (10:18)
[2025-07-18] MEDS ORDERED: ONDANSETRON INJ 2 MG/ML 2 ML VIAL ONE (10:35)
[2025-07-18] MEDS: DIATRIZOATE MEGLUMINE 30% 100ML VIAL INSTIL ONE (10:36)
--- NOTE | 2025-07-18 10:43 | Operative Report ---
PG Post Operative Report Pre & Post Diagnosis Right ureteral calculus in solitary kidney Operation Date: 07/18/25 14:40 <No data on this case meets the specified criteria> Right ureteral calculus in solitary kidney I identified the patient and participated in the time-out.: Yes Procedure Operation Date: 07/18/25 14:40 <No data on this case meets the specified criteria> Surgeon Margarito Kelly MD Rn Teacher None Estimated Blood Loss 0 Findings See Below Moderate right hydro. Stent in good position Specimens None Drains 6x26 R stent Anesthesia Type MAC Indications 69 yo M with solitary right kidney and obstructing right ureteral calculus Description of Procedure After informed consent was obtained, the patient was transported operative suite. MAC anesthesia was induced. The patient was placed in dorsolithotomy position prepped and draped in a sterile fashion. They received preoperative ancef for antibiotic prophylaxis. An appropriate surgical timeout was performed. A 22 [place] rigid scope was inserted per urethra into the bladder. Hinojosa cystoscopy revealed no stones or lesions. I turned my attention the right ureteral orifice and intubated this with a 5 [place] open-ended catheter. A right retrograde pyelogram was shot which showed moderate hydronephrosis. A sensor wire was advanced into the kidney and confirmed fluoroscopically. A 6 [place] by 26 cm right ureteral stent was deployed with a good proximal coil in the renal pelvis and a good distal coil noted in the bladder, confirmed fluoroscopically and under direct visualization, respectively. The bladder was emptied and the scope was removed. This concluded the end of the case. All counts were correct at the end of the case. I was present, scrubbed, and actively participated for the entirety of the procedure. I attest to the content of the Intraoperative Record and any orders documented therein. Any exceptions are noted below.
--- NOTE | 2025-07-18 10:57 | Fluoroscopy Report ---
INTRAOPERATIVE RADIOGRAPHS CLINICAL HISTORY: Right ureteral stent placement. Fluoro time: 8 seconds Ka,r: 2.54 mGy FINDINGS: 3 spot fluoroscopic views of the right abdomen are correlated with abdominal CT dated 2024. Contrast in the right renal collecting system shows hydronephrosis. The proximal end of a right ureteral stent is shown in appropriate position. Orthopedic hardware is seen in the spine. IMPRESSION: Intraoperative images from a right ureteral stent procedure. Electronically signed by: Dagoberto Liang M.D. 07/18/2025 10:55 AM
--- NOTE | 2025-07-18 11:11 | Anesthesiology Progress Note ---
Date of Service July 18, 2025 Anesthesia Post Procedure Vital Signs Vital Signs: Temp Pulse Pulse Resp BP BP Pulse Ox 07/18/25 11:08 36.8 C 72 13 134/65 91 07/18/25 10:55 64 13 139/62 93 07/18/25 10:45 36.7 C 69 14 153/67 H 98 07/18/25 09:57 37.1 C 96 H 20 148/78 H 93 07/18/25 09:45 37.1 C 96 H 20 148/78 H 93 07/18/25 09:18 68 07/18/25 09:00 72 16 168/82 H 97 07/18/25 07:00 63 18 188/111 H 93 07/18/25 06:03 69 20 94 07/18/25 06:02 177/107 H 07/18/25 06:02 177/107 H 07/18/25 05:36 64 21 95 07/18/25 05:30 189/108 H 07/18/25 05:30 62 19 93 07/18/25 05:27 62 16 92 07/18/25 05:15 66 07/18/25 05:13 07/18/25 05:12 193/109 H 07/18/25 04:52 36.7 C 62 18 193/109 H 93 O2 Del Method O2 Flow Rate 07/18/25 11:08 Room Air 07/18/25 10:55 Room Air 07/18/25 10:45 Oxymask 6 07/18/25 09:57 Room Air 07/18/25 09:45 Room Air 07/18/25 09:18 07/18/25 09:00 Nasal Cannula 2 07/18/25 07:00 07/18/25 06:03 07/18/25 06:02 07/18/25 06:02 07/18/25 05:36 07/18/25 05:30 07/18/25 05:30 07/18/25 05:27 07/18/25 05:15 07/18/25 05:13 Room Air 07/18/25 05:12 07/18/25 04:52 Room Air Pain Intensity Flank: Pain Intensity: 5 Right Flank: Pain Intensity: 3 Transfer of Care Handoff Completed per policy Notes Mental Status: alert / awake / arousable Patient Amnestic to Procedure: Yes Nausea / Vomiting: adequately controlled Pain: adequately controlled Airway Patency, RR, SpO2: stable & adequate BP & HR: stable & adequate Hydration State: stable & adequate Anesthetic Complications: no major complications apparent
[2025-07-18] MEDS ORDERED: ACETAMINOPHEN 325 MG TAB PO PRN (14:39)
[2025-07-18] MEDS: SODIUM CHLORIDE 0.9% 1,000 ML IV SCH (14:57)
[2025-07-18] MEDS: DOCUSATE SODIUM 100 MG CAP PO SCH (15:19)
[2025-07-18] MEDS: WARFARIN SOD 7.5 MG TAB PO SCH (15:20)
[2025-07-18] MEDS: SERTRALINE HCL 100 MG TABLET PO SCH (15:20)
[2025-07-18] MEDS: ATORVASTATIN 40 MG TAB PO SCH (15:21)
[2025-07-18] MEDS: EZETIMIBE 10 MG TAB PO SCH (15:21)
[2025-07-18] MEDS: ASPIRIN 81 MG ECTAB PO SCH (15:22)
[2025-07-18] MEDS: FLUTICASONE PROPIONATE NA SPR 16 GM BTL SCH (15:24)
[2025-07-18] MEDS: LEVOTHYROXINE SODIUM 112 MCG TABLET PO SCH (15:24)
[2025-07-18] MEDS: FAMOTIDINE 20 MG TAB PO SCH (15:29)
[2025-07-18] MEDS: MoRPHine SULFATE CR 15 MG TABCR PO SCH (15:29)
[2025-07-18] MEDS: POTASSIUM CHLORIDE 10 MEQ TABCR PO SCH (15:29)
[2025-07-18] MEDS: LORazepam 1 MG TAB PO SCH (21:39)
[2025-07-18] MEDS: GABAPENTIN 600 MG TAB PO SCH (21:39)
[2025-07-19 08:03] LABS: Anion Gap 3.0 (3-11); Blood Urea Nitrogen 31.0 mg/dl (6-23); Calcium 8.9 mg/dl (8.6-10.3); Carbon Dioxide 32.0 mmol/L (21-32); Chloride 105.0 mmol/L (98-107); Creatinine Clr Calc Pharmacy 51.9 ml/min; Glucose 105.0 mg/dl (70-99(Fasting)); Potassium 4.3 mmol/L (3.5-5.1); Sodium 140.0 mmol/L (136-145)
[2025-07-19 08:11] LABS: INR 1.8 (0.9-1.1); Prothrombin Time 18.8 Seconds (9.0-12.0)
--- NOTE | 2025-07-19 12:03 | Urology Progress Note ---
Date of Service July 19, 2025 Assessment & Plan (1) Solitary kidney, acquired: (2) Calculus of right ureter: (3) Hydronephrosis concurrent with and due to calculi of kidney and ureter: Plan: 69 yo male with a history of solitary kidney admitted with an obstructing right ureteral stone and MAYO. - Pt POD#1 s/p cystoscopy, retrograde pyelogram, and right ureteral stent placement - Doing well, progressing as expected - Afebrile, hemodynamically stable - Lab work reviewed - creatinine improved to 1.68, WBC 7.64 - Tolerating right ureteral stent with minimal bother - Okay to d/c from perspective when medically stable - Recommend d/c with Tamsulosin; consider addition of prn oxybutynin, Pyridium and prn pain medication for stent management - Expected clinical course reviewed, all questions answered - Will arrange outpatient follow-up with our service to set up definitive stone treatment - will sign off, please contact our service with any additional questions or concerns Admission and Anticipated Discharge Date Admission Date: July 18, 2025 Subjective Patient seen and examined at bedside No acute issues overnight Notes some right sided discomfort with voiding, then resolves Hematuria postprocedure No fever or chills Review of Systems Constitutional: as per Subjective / HPI Genitourinary: + as per Subjective / HPI Physical Exam Constitutional: well developed and well nourished; no acute distress Respiratory: normal respiratory effort; no respiratory distress and no labored breathing Gastrointestinal (Abdomen): Inspection/Auscultation: abdomen normal to inspection Musculoskeletal: Head/Neck/Chest: normocephalic Neurologic: moves all extremities and awake Psychiatric: Orientation: alert and oriented x 3 Results & Data Vital Signs (Past 12 Hours) Vital Signs Temp Pulse Resp BP Pulse Ox O2 Del Method 07/19/25 07:33 37.0 C 62 18 151/79 H 93 Room Air 07/19/25 03:14 36.7 C 93 H 18 155/80 H 94 Room Air PG Care Time/CCT Total # of Minutes Spent Total Time Spent with Patient: Total time spent is greater than 50% in coordination of care (as documented) at patient's floor/unit and/or counseling patient: Coding Level of Care Code 24043 SUB INP/OBS CARE 12/18MIN Diagnoses Solitary kidney, acquired Z90.5 Calculus of right ureter N20.1 Hydronephrosis concurrent with and due to calculi of kidney and ureter N13.2
--- NOTE | 2025-07-19 17:43 | Hospitalist Progress Note ---
Date of Service July 19, 2025 Assessment & Plan (1) Calculus of right ureter: Plan: Presented with pain and noted to have right hydronephrosis Status post cystoscopy, retrograde pyelogram and right ureteric stent placement on 07/18/2025 Appreciate urologist input and recommendation Remains symptomatic with pain in the right line and also hematuria Will observe tonight and possible discharge tomorrow (2) Hydronephrosis concurrent with and due to calculi of kidney and ureter: Plan: as above Has significant tenderness involving the right renal angle (3) Uncontrolled hypertension: Plan: Blood pressure remains on the upper side at 162/85 (4) Chronic renal failure (CRF), stage 3 (moderate): Plan: Creatinine has been improving Was advised to drink more fluid and will recheck PRP (5) Solitary kidney, acquired: (6) Chronic heart failure with preserved ejection fraction: Plan: No evidence of fluid overload (7) Hypothyroidism: (8) Narcotic dependency, continuous: (9) Failed back syndrome: (10) Paroxysmal atrial fibrillation: Plan: will continue warfarin (11) History of pacemaker: (12) Aortic stenosis: (13) History of aortic valve replacement with bioprosthetic valve: Plan Patient 69-year-old gentleman with acute onset of right flank pain due to obstru cting 5 mm ureteric stone with hydronephrosis. Patient is significant pain requires hospital level care and intervention. Observe in the hospital Consult urology for surgical intervention Continue outpatient medications as appropriate Anticipate blood pressure will improve as the pain is uncontrolled. Patient reports that his blood pressure has been fluctuating and they have been working on his medications outpatient. Will not change his outpatient medications at this time Pain control Nausea control Some gentle IV hydration Monitor renal function Continue warfarin therapy, Monitor INR Admission and Anticipated Discharge Date Admission Date: July 18, 2025 Subjective 07/19/2025 The patient was seen and examined in medical floor He has been complaining of pain in the right renal angle and pain is worse with micturition He has been having dark urine suggestive of hematuria Not yet ready to be discharged Review of Systems Review of Systems: all systems reviewed and are unremarkable except as noted below Physical Exam Physical Exam: lying in bed without any acute distress Constitutional: well developed, well nourished and + ill appearing Eyes: PERRL, conjunctivae normal, anicteric sclerae ENMT: external ear and nose normal, oropharynx normal Neck: trachea midline, no thyromegaly Respiratory: no respiratory distress Auscultation: lungs clear to auscultation bilaterally Cardiovascular: Rate/Rhythm: regular rate and regular rhythm; not tachycardic Heart Sounds: normal S1 and normal S2; no murmur Extremities: no edema Gastrointestinal (Abdomen): Inspection/Auscultation: normal bowel sounds; abdomen not distended Percussion/Palpation: + abdomen tender ( right renal angle) and abdomen soft Musculoskeletal: no acute arthritis involving any of the joint Neurologic: normal touch/pain/proprioception and moves all extremities; no focal motor deficits Lymphatic: no cervical or axillary lymphadenopathy Results & Data Results & Data Vital Signs (Past 12 Hours) Vital Signs Temp Pulse Resp BP Pulse Ox O2 Del Method 07/19/25 14:25 37.2 C 62 16 162/85 H 94 Room Air 07/19/25 07:33 37.0 C 62 18 151/79 H 93 Room Air Laboratory Results BMP 07/19/25 07:17 Sodium 140 Potassium 4.3 Chloride 105 Carbon Dioxide 32 BUN 31 H Creatinine 1.68 H Glucose 105 H Calcium 8.9 Medications Administered Current Inpatient Medications Acetaminophen (Acetaminophen 325 Mg Tab) 650 mg PO Q4H PRN PRN Reason: mild pain/fever Stop: 08/17/25 14:38 Aspirin (Aspirin 81 Mg Ectab) 81 mg PO [place] Stop: 08/17/25 14:59 Last Admin: 07/19/25 08:27 Dose: 81 mg Atorvastatin Calcium (Atorvastatin 40 Mg Tab) 80 mg PO DAILY [facility] Stop: 08/17/25 14:59 Last Admin: 07/19/25 08:29 Dose: Not Given Diltiazem HCl (Diltiazem Hcl 120 Mg Capcr) 120 mg PO DAILY [facility] Stop: 08/17/25 14:59 Last Admin: 07/19/25 08:29 Dose: Not Given Docusate Sodium (Docusate Sodium 100 Mg Cap) 300 mg PO DAILY [facility] Stop: 08/17/25 14:38 Last Admin: 07/19/25 08:27 Dose: 300 mg Ezetimibe (Ezetimibe 10 Mg Tab) 10 mg PO DAILY [facility] Stop: 08/17/25 14:59 Last Admin: 07/19/25 11:09 Dose: 10 mg Famotidine (Famotidine 20 Mg Tab) 20 mg PO DAILY [facility] Stop: 08/17/25 14:59 Last Admin: 07/19/25 08:29 Dose: Not Given Fluticasone Propionate (Fluticasone Propionate Na Spr 16 Gm Btl) 1 sprays NA DAILY [facility] Stop: 08/17/25 14:59 Last Admin: 07/19/25 08:29 Dose: Not Given Gabapentin (Gabapentin 600 Mg Tab) 600 mg PO HS [facility] Stop: 08/17/25 20:59 Last Admin: 07/18/25 21:39 Dose: Not Given Hydromorphone HCl (Hydromorphone Inj 1 Mg/Ml Syringe) 1 mg IV Q1H PRN PRN Reason: Pain Stop: 08/01/25 08:32 Last Admin: 07/18/25 09:00 Dose: 1 mg Levothyroxine Sodium (Levothyroxine Sodium 112 Mcg Tablet) [facility] Stop: 08/17/25 14:59 Last Admin: 07/19/25 06:05 Dose: 112 mcg Lorazepam (Lorazepam 1 Mg Tab) [address] [facility]; Protocol Stop: 08/17/25 20:59 Last Admin: 07/18/25 21:39 Dose: Not Given Morphine Sulfate (Morphine Sulfate Cr 15 Mg Tabcr) 30 mg PO Q12 [facility] Stop: 08/01/25 14:59 Last Admin: 07/19/25 08:27 Dose: 30 mg Ondansetron HCl (Ondansetron Inj 2 Mg/Ml 2 Ml Vial) 4 mg IV Q6H PRN PRN Reason: Nausea And Vomiting Stop: 08/17/25 08:32 Last Admin: 07/18/25 09:00 Dose: 4 mg Oxycodone HCl (Oxycodone Hcl Ir 5 Mg Tab (Immediate Release)) 5 mg PO Q4H PRN PRN Reason: MODERATE OR SEVERE PAIN Stop: 08/01/25 14:52 Pantoprazole Sodium (Pantoprazole 40 Mg Tab) 40 mg PO DAILY [facility] Stop: 08/17/25 14:59 Last Admin: 07/19/25 08:28 Dose: 40 mg Potassium Chloride (Potassium Chloride 10 Meq Tabcr) 10 meq PO DAILY [facility] Stop: 08/17/25 14:59 Last Admin: 07/19/25 08:29 Dose: Not Given Sertraline HCl (Sertraline Hcl 100 Mg Tablet) 100 mg PO QAM [facility] Stop: 08/17/25 14:59 Last Admin: 07/19/25 08:28 Dose: 100 mg Trazodone HCl (Trazodone Hcl 100 Mg Tab) 200 mg PO HS [facility] Stop: 08/17/25 20:59 Last Admin: 07/18/25 21:39 Dose: Not Given Warfarin Sodium (Warfarin Sod 7.5 Mg Tab) 7.5 mg PO DAILY@1600 [facility] Stop: 08/17/25 15:59 Last Admin: 07/19/25 16:23 Dose: 7.5 mg
[2025-07-19 20:15] VITALS: RESP 18
[2025-07-19 23:01] VITALS: TEMP 98.6; O2SAT 95
--- NOTE | 2025-07-19 23:14 | Communication Note ---
Date of Service: July 19, 2025 Made aware by RN of uncontrolled blood pressure. SBP 1 50-1 90s since early a.m. Heart rate 60s Patient asymptomatic as per RN except for dysuria symptoms. AP Hypertensive urgency Home lisinopril on hold likely secondary to kidney dysfunction Add amlodipine to diltiazem for now Will relay to AM provider.
[2025-07-20 06:29] LABS: Hematocrit (blood only) 41.4 % (42.0-52.0); Hemoglobin 13.7 g/dl (14.0-18.0); Immature Granulocytes # (auto) 0.01 K/uL (0.01-0.20); Immature Granulocytes % (auto) 0.1 %; Mean Corpuscular Hemoglobin 30.0 pg (25.0-34.0); Mean Corpuscular Volume 90.6 fL (80.0-100.0); Platelet Count 160 K/uL (130-400); RDW Standard Deviation 43.9 fL (36.4-46.3); Red Blood Count 4.57 M/uL (4.70-6.10); White Blood Count 7.39 K/ul (4.8-10.8)
[2025-07-20 07:02] LABS: INR 1.7 (0.9-1.1); Prothrombin Time 18.0 Seconds (9.0-12.0)
[2025-07-20 07:04] LABS: Anion Gap 7.0 (3-11); Blood Urea Nitrogen 27.0 mg/dl (6-23); Calcium 9.5 mg/dl (8.6-10.3); Carbon Dioxide 30.0 mmol/L (21-32); Chloride 104.0 mmol/L (98-107); Creatinine Clr Calc Pharmacy 60.3 ml/min; Glucose 99.0 mg/dl (70-99(Fasting)); Potassium 4.5 mmol/L (3.5-5.1); Sodium 141.0 mmol/L (136-145)
[2025-07-20 07:50] VITALS: PULSE 68
[2025-07-20 09:28] VITALS: BP 169/84
--- NOTE | 2025-07-20 10:20 | Hospitalist Progress Note ---
Date of Service July 20, 2025 Assessment & Plan (1) Calculus of right ureter: Plan: Presented with pain and noted to have right hydronephrosis Status post cystoscopy, retrograde pyelogram and right ureteric stent placement on 07/18/2025 Appreciate urologist input and recommendation Remains symptomatic with pain in the right line and also hematuria Will observe tonight and possible discharge tomorrow kind of Still has moderate pain in the right renal angle and continues to have hematuria Hemoglobin stable at 13.7 and creatinine has improved a little bit Appreciate urology input and recommendation about discharge home with follow-up as an outpatient (2) Hydronephrosis concurrent with and due to calculi of kidney and ureter: Plan: as above Has significant tenderness involving the right renal angle (3) Uncontrolled hypertension: Plan: Blood pressure remains on the upper side at 162/85 (4) Chronic renal failure (CRF), stage 3 (moderate): Plan: Creatinine has been improving Was advised to drink more fluid and will recheck PRP (5) Solitary kidney, acquired: (6) Chronic heart failure with preserved ejection fraction: Plan: No evidence of fluid overload (7) Hypothyroidism: (8) Narcotic dependency, continuous: (9) Failed back syndrome: (10) Paroxysmal atrial fibrillation: Plan: will continue warfarin INR is 1.7 and will continue current dose of Coumadin Strongly advised to have follow-up appointment with coagulation clinic (11) History of pacemaker: (12) Aortic stenosis: (13) History of aortic valve replacement with bioprosthetic valve: Plan Patient 69-year-old gentleman with acute onset of right flank pain due to obstructing 5 mm ureteric stone with hydronephrosis. Patient is significant pain requires hospital level care and intervention. Observe in the hospital Consult urology for surgical intervention Continue outpatient medications as appropriate Anticipate blood pressure will improve as the pain is uncontrolled. Patient reports that his blood pressure has been fluctuating and they have been working on his medications outpatient. Will not change his outpatient medications at this time Pain control Nausea control Some gentle IV hydration Monitor renal function Continue warfarin therapy, Monitor INR Admission and Anticipated Discharge Date Admission Date: July 18, 2025 Subjective 07/19/2025 The patient was seen and examined in medical floor He has been complaining of pain in the right renal angle and pain is worse with micturition He has been having dark urine suggestive of hematuria Not yet ready to be discharged 07/20/2025 The patient was seen and examined in medical floor He has been stable with moderate pain of the right renal angle Still having hematuria without any evidence of decreasing hemoglobin He wants to go home and did not want to stay any longer in the hospital He will be discharged this morning and warned that he might have more hematuria and he may need to be back Review of Systems Review of Systems: all systems reviewed and are unremarkable except as noted below Physical Exam Physical Exam: lying in bed without any acute distress Constitutional: well developed, well nourished and + ill appearing Eyes: PERRL, conjunctivae normal, anicteric sclerae ENMT: external ear and nose normal, oropharynx normal Neck: trachea midline, no thyromegaly Respiratory: no respiratory distress Auscultation: lungs clear to auscultation bilaterally Cardiovascular: Rate/Rhythm: regular rate and regular rhythm; not tachycardic Heart Sounds: normal S1 and normal S2; no murmur Extremities: no edema Gastrointestinal (Abdomen): Inspection/Auscultation: normal bowel sounds; abdomen not distended Percussion/Palpation: + abdomen tender ( right renal angle) and abdomen soft Neurologic: normal touch/pain/proprioception and moves all extremities; no focal motor deficits Lymphatic: no cervical or axillary lymphadenopathy Results & Data Results & Data Vital Signs (Past 12 Hours) Vital Signs Temp Pulse Pulse Resp BP Pulse Ox O2 Del Method 07/20/25 09:27 169/84 H 07/20/25 07:43 37.0 C 68 18 193/113 H 95 Room Air 07/19/25 22:57 37.0 C 64 18 193/99 H 95 Room Air Laboratory Results Short CBC 07/20/25 Range/Units 06:01 WBC 7.39 (4.8-10.8) K/ul Hgb 13.7 L (14.0-18.0) g/dl Hct 41.4 L (42.0-52.0) % Plt Count 160 (130-400) K/uL BMP 07/20/25 06:01 Sodium 141 Potassium 4.5 Chloride 104 Carbon Dioxide 30 BUN 27 H Creatinine 1.43 H Glucose 99 Calcium 9.5 Medications Administered Current Inpatient Medications Acetaminophen (Acetaminophen 325 Mg Tab) 650 mg PO Q4H PRN PRN Reason: mild pain/fever Stop: 08/17/25 14:38 Amlodipine Besylate (Amlodipine Besylate 5 Mg Tab) 2.5 mg PO HS [facility] Stop: 08/18/25 23:14 Last Admin: 07/20/25 00:54 Dose: 2.5 mg Aspirin (Aspirin 81 Mg Ectab) 81 mg PO QAM [facility] Stop: 08/17/25 14:59 Last Admin: 07/20/25 08:02 Dose: 81 mg Atorvastatin Calcium (Atorvastatin 40 Mg Tab) 80 mg PO DAILY [facility] Stop: 08/17/25 14:59 Last Admin: 07/20/25 08:00 Dose: Not Given Diltiazem HCl (Diltiazem Hcl 120 Mg Capcr) 120 mg PO DAILY [facility] Stop: 08/17/25 14:59 Last Admin: 07/20/25 08:02 Dose: 120 mg Docusate Sodium (Docusate Sodium 100 Mg Cap) 300 mg PO DAILY [facility] Stop: 08/17/25 14:38 Last Admin: 07/20/25 08:07 Dose: 300 mg Ezetimibe (Ezetimibe 10 Mg Tab) 10 mg PO DAILY [facility] Stop: 08/17/25 14:59 Last Admin: 07/20/25 08:02 Dose: 10 mg Famotidine (Famotidine 20 Mg Tab) 20 mg PO DAILY [facility] Stop: 08/17/25 14:59 Last Admin: 07/20/25 08:00 Dose: Not Given Fluticasone Propionate (Fluticasone Propionate Na Spr 16 Gm Btl) 1 sprays NA DAILY [facility] Stop: 08/17/25 14:59 Last Admin: 07/20/25 08:00 Dose: Not Given Gabapentin (Gabapentin 600 Mg Tab) 600 mg PO HS [facility] Stop: 08/17/25 20:59 Last Admin: 07/19/25 19:53 Dose: Not Given Hydromorphone HCl (Hydromorphone Inj 1 Mg/Ml Syringe) 1 mg IV Q1H PRN PRN Reason: Pain Stop: 08/01/25 08:32 Last Admin: 07/18/25 09:00 Dose: 1 mg Levothyroxine Sodium (Levothyroxine Sodium 112 Mcg Tablet) 112 mcg PO DAILYBB [facility] Stop: 08/17/25 14:59 Last Admin: 07/20/25 06:15 Dose: 112 mcg Lorazepam (Lorazepam 1 Mg Tab) 1 mg PO HS [facility]; Protocol Stop: 08/17/25 20:59 Last Admin: 07/19/25 19:53 Dose: Not Given Morphine Sulfate (Morphine Sulfate Cr 15 Mg Tabcr) 30 mg PO Q12 [facility] Stop: 08/01/25 14:59 Last Admin: 07/20/25 08:07 Dose: 30 mg Ondansetron HCl (Ondansetron Inj 2 Mg/Ml 2 Ml Vial) 4 mg IV Q6H PRN PRN Reason: Nausea And Vomiting Stop: 08/17/25 08:32 Last Admin: 07/18/25 09:00 Dose: 4 mg Oxycodone HCl (Oxycodone Hcl Ir 5 Mg Tab (Immediate Release)) 5 mg PO Q4H PRN PRN Reason: MODERATE OR SEVERE PAIN Stop: 08/01/25 14:52 Pantoprazole Sodium (Pantoprazole 40 Mg Tab) 40 mg PO DAILY [facility] Stop: 08/17/25 14:59 Last Admin: 07/20/25 08:02 Dose: 40 mg Potassium Chloride (Potassium Chloride 10 Meq Tabcr) 10 meq PO DAILY [facility] Stop: 08/17/25 14:59 Last Admin: 07/20/25 08:01 Dose: Not Given Sertraline HCl (Sertraline Hcl 100 Mg Tablet) 100 mg PO QAM [facility] Stop: 08/17/25 14:59 Last Admin: 07/20/25 08:02 Dose: 100 mg Trazodone HCl (Trazodone Hcl 100 Mg Tab) 200 mg PO HS [facility] Stop: 08/17/25 20:59 Last Admin: 07/19/25 19:53 Dose: Not Given Warfarin Sodium (Warfarin Sod 7.5 Mg Tab) 7.5 mg PO DAILY@1600 [facility] Stop: 08/17/25 15:59 Last Admin: 07/19/25 16:23 Dose: 7.5 mg This is we do not have any other
--- NOTE | 2025-07-20 16:54 | Discharge Summary ---
Date of Service July 20, 2025 Admission HPI Per Admitting Provider Patient 69-year-old gentleman with history of solitary kidney status post removal of left kidney for benign reasons, presented to the emergency room with acute onset of right flank pain and uncontrolled hypertension. Evaluation in the emergency room shows an obstructing 5 mm ureteric stone on the right. Patient has some chronic cardiac issues Including paroxysmal atrial fibrillation, coronary disease and status post pacemaker insertion. He is on chronic anticoagulation. These issues seem to be stable. Patient's hypertension was significantly uncontrolled when he presented. Has improved since he has had some pain control. Patient reports that his blood pressure has been fluctuating throughout the summer and they have been trying to adjust his medications. Sometimes it is extremely high, other times his blood pressure is low to the point where asymptomatic. Emergency department contacted urology. They are planning on taking him to the operating room for stent placement they are comfortable with taking him to the operating room with his current INR. Time of my evaluation patient still in a fair amount of pain but somewhat improved. He denies any fever or chills. No cough or cold symptoms. No chest pain or shortness of breath. A little bit of nausea due to pain and meds but prior to this morning he was feeling well. No new problems with his bowels or bladder. Has had some swelling in his left leg but this is most likely due to vein harvesting for his bypass. No other significant joint problems. He has some chronic back pains and is on chronic narcotic management. Admission Exam Per Admitting Provider Physical Exam: Constitutional: Alert, mild distress due to pain nontoxic HEENT: Mucous membranes moist. Sclera clear Neck: Soft, no adenopathy Lungs: Clear to auscultation, decreased, no wheezes rales or rhonchi CV: S1-S2, regular, systolic murmur Abdomen: Soft, nontender, nondistended, some mild right flank pain Extremities: Trace pretibial edema left lower extremity greater than right Musculoskeletal: No significant joint tenderness Neuro: No focal deficits Psych: Cooperative, normal mood Principal Diagnosis (1) Calculus of right ureter: (2) Hydronephrosis concurrent with and due to calculi of kidney and ureter: (3) Uncontrolled hypertension: (4) Chronic renal failure (CRF), stage 3 (moderate): (5) Solitary kidney, acquired: (6) Chronic heart failure with preserved ejection fraction: (7) Hypothyroidism: (8) Narcotic dependency, continuous: (9) Failed back syndrome: (10) Paroxysmal atrial fibrillation: (11) History of pacemaker: (12) Aortic stenosis: (13) History of aortic valve replacement with bioprosthetic valve: Discharge Exam lying in bed without any acute distress Constitutional well developed, well nourished and + ill appearing Eyes PERRL, conjunctivae normal, anicteric sclerae ENMT external ear and nose normal, oropharynx normal Neck trachea midline, no thyromegaly Respiratory no respiratory distress Auscultation: lungs clear to auscultation bilaterally Cardiovascular Rate/Rhythm: regular rate and regular rhythm; not tachycardic Heart Sounds: normal S1 and normal S2; no murmur Extremities: no edema Gastrointestinal (Abdomen) Inspection/Auscultation: normal bowel sounds; abdomen not distended Percussion/Palpation: + abdomen tender ( right renal angle) and abdomen soft Neurologic normal touch/pain/proprioception and moves all extremities; no focal motor deficits Lymphatic no cervical or axillary lymphadenopathy Discharge Data Allergies Allergy/AdvReac Type Severity Reaction Status Date / Time Milk Containing Products Allergy Severe Gastrointestinal Verified 07/18/25 09:44 (Dairy) Upset Penicillins Allergy Mild Unknown Verified 07/18/25 09:44 Consultations 07/18/25 08:09 ED Decision to Admit Stat 07/18/25 14:39 Consult Urology Routine Procedures Performed Operation Date: 07/18/25 14:40 Actual Procedures p Cystoscopy, Right Retrograde Pyelogram, Right Ureteral Stent Placement(Right) - Margarito Kelly MD Ordered Studies 07/18/25 06:16 CT abd pelvis wo con Stat 07/18/25 10:00 FL retrograde includes kub Routine Hospital Course (1) Calculus of right ureter: Presented with pain and noted to have right hydronephrosis Status post cystoscopy, retrograde pyelogram and right ureteric stent placement on 07/18/2025 Appreciate urologist input and recommendation Remains symptomatic with pain in the right line and also hematuria Will observe tonight and possible discharge tomorrow kind of Still has moderate pain in the right renal angle and continues to have hematuria Hemoglobin stable at 13.7 and creatinine has improved a little bit Appreciate urology input and recommendation about discharge home with follow-up as an outpatient (2) Hydronephrosis concurrent with and due to calculi of kidney and ureter: as above Has significant tenderness involving the right renal angle (3) Uncontrolled hypertension: Blood pressure remains on the upper side at 162/85 (4) Chronic renal failure (CRF), stage 3 (moderate): Creatinine has been improving Was advised to drink more fluid and will recheck PRP (5) Solitary kidney, acquired: (6) Chronic heart failure with preserved ejection fraction: No evidence of fluid overload (7) Hypothyroidism: (8) Narcotic dependency, continuous: (9) Failed back syndrome: (10) Paroxysmal atrial fibrillation: will continue warfarin INR is 1.7 and will continue current dose of Coumadin Strongly advised to have follow-up appointment with coagulation clinic (11) History of pacemaker: (12) Aortic stenosis: (13) History of aortic valve replacement with bioprosthetic valve: Plan Patient 69-year-old gentleman with acute onset of right flank pain due to obst ructing 5 mm ureteric stone with hydronephrosis. Patient is significant pain requires hospital level care and intervention. Observe in the hospital Consult urology for surgical intervention Continue outpatient medications as appropriate Anticipate blood pressure will improve as the pain is uncontrolled. Patient reports that his blood pressure has been fluctuating and they have been working on his medications outpatient. Will not change his outpatient medications at this time Pain control Nausea control Some gentle IV hydration Monitor renal function Continue warfarin therapy, Monitor INR Total Time Total Time Spent Total Time Spent (In Minutes): 40 minutes Discharge Plan Discharge Items Patient Disposition: Home - Self-Care Reason For Visit: KIDNEY STONE Discharge Diagnosis: (1) Calculus of right ureter: (2) Hydronephrosis concurrent with and due to calculi of kidney and ureter: (3) Uncontrolled hypertension: (4) Chronic renal failure (CRF), stage 3 (moderate): (5) Solitary kidney, acquired: (6) Chronic heart failure with preserved ejection fraction: (7) Hypothyroidism: (8) Narcotic dependency, continuous: (9) Failed back syndrome: (10) Paroxysmal atrial fibrillation: (11) History of pacemaker: (12) Aortic stenosis: (13) History of aortic valve replacement with bioprosthetic valve: Condition on Discharge: Good Activity: Resume your previous activity Non-emergency contact: Primary Care Provider and Urologist Call non-emergency contact if: your symptoms worsen Follow-up/Referrals: Rolando Valdez MD [Primary Care Provider] - 07/26/25 9:20 am (Date & Time 07/26/2025 9:20 AM Provider: Shayna Duenas PA-C General Internal Medicine [facility] ) Margarito Kelly MD [Physician] - (The office will call you with a follow up appointment.) Diet: Other - See Diet Comment Diet Comment: Resume your previous diet Addtl Attending Provider Instructions: Please take precautions to avoid falls Take your medications as advised Please have regular appointment with the coagulation clinic to maintain your INR and dose Coumadin Follow-up with urology as coordinated through their office Follow-up with your PCP Pending Studies at Discharge: No Stand-Alone Forms: My [facility] [employer], Smoking Cessation Medications and DC Order Prescriptions: Continued atorvastatin [Lipitor] 80 mg tablet 80 mg PO HS ezetimibe [Zetia] 10 mg tablet 10 mg PO QAM Citrucel (sucrose) Powder 1 tbsp PO QAM melatonin 10 mg capsule 10 mg PO HS PRN (Reason: Sleep) Adult 50 Plus Probiotic 4 billion cell capsule 4,000 mmu cells PO QAM Rx Instructions: administer with a meal docusate sodium [Colace] 100 mg capsule 300 mg PO HS fluticasone propionate [Flonase Allergy Relief] 50 mcg/actuation spray,suspension 1 spray intranasal DAILY Rx Instructions: administer into each nostril aspirin [Adult Aspirin Regimen] 81 mg tablet,delayed release (DR/EC) 81 mg PO QAM multivitamin tablet 1 tab PO QAM morphine 30 mg tablet extended release 30 mg PO Q12H coenzyme Q10 400 mg capsule 400 mg PO QAM sertraline [Zoloft] 100 mg Tablet 100 mg PO QAM famotidine 20 mg Tablet 40 mg PO QAM pantoprazole 40 mg Tablet,Delayed Release (Dr/Ec) 40 mg PO QAM omega-3 fatty acids 1,000 mg Capsule 1,000 mg PO QAM levothyroxine 100 mcg tablet 100 mcg PO DAILYBB verapamil 180 mg capsule,ext rel. pellets 24 hr 180 mg PO QAM torsemide 5 mg tablet 5 mg PO QAM warfarin 5 mg tablet 5 mg PO QAM lisinopril 5 mg tablet 5 mg PO BID diltiazem HCl 120 mg capsule,extended release 24hr 120 mg PO HS tamsulosin 0.4 mg capsule 0.4 mg PO QAM Qty: 20 0RF Discontinued gabapentin 300 mg capsule 300 mg PO HS Discharge Orders: Discharge Order (Routine); Ordered 07/20/25 Ordered By: Vitaly Mary Admission Data Admit Date/Time: 07/20/25 10:14 Attending Provider: Vitaly Mary Admit Provider: Kai Ware Primary Care Provider: Rolando Valdez Other Providers: Kai Ware Other Interventions: Discharge Summary Assessment (RN) Last Done: 07/20/25 11:15
--- NOTE | 2025-07-21 21:31 | Electrocardiogram Report ---
Test Reason : Blood Pressure : */* mmHG Vent. Rate : 76 BPM Atrial Rate : 62 BPM P-R Int : 326 ms QRS Dur : 100 ms QT Int : 370 ms P-R-T Axes : * -30 146 degrees QTcB Int : 416 ms Atrial-paced rhythm with prolonged AV conduction with occasional ventricular-paced complexes Left axis deviation Minimal voltage criteria for LVH, may be normal variant ( R in aVL ) Cannot rule out Septal infarct , age undetermined Abnormal ECG When compared with ECG of 06-Feb-2022 10:35, AV pacemaker is now present Confirmed by Johann Hebert ([id number]) on 07/21/2025 9:30:42 PM Referred By: Confirmed By: Johann Hebert
== END 2025-07-20 11:43 | disposition home or self-care (01) | DRG 660 ==
LOC: ED 05:06 → PACUINP 05:06 → SUATTDRO 08:43 → 3E 14:37